=== PATIENT | female | born 1955 | race Caucasian/White ===

== ENCOUNTER 2018-05-11 10:59 | Day surgery (SDC) | payer OTHER ==
[2018-05-11] MEDS ORDERED: FENTAnyl 50 MCG/ML VIAL (12:48)
[2018-05-11] MEDS ORDERED: MIDAZOLAM 1 MG/ML 2 ML INJ ×2 (12:49)
== END 2018-05-11 17:22 | disposition home or self-care (01) ==
LOC: GIL 10:59
DX: K21.9 Gastro-esophageal reflux disease without esophagitis (principal); K44.9 Diaphragmatic hernia without obstruction or gangrene; K29.70 Gastritis, unspecified, without bleeding
CPT/HCPCS: 43239; 88305

== ENCOUNTER 2018-05-16 07:04 | Emergency (ER) | payer OTHER ==
[2018-05-16] MEDS: BELLADONNA/PHENOBARBITAL TAB PO (08:02)
[2018-05-16] MEDS: LIDOCAINE/MYLANTA 40 ML BTL PO (08:02)
[2018-05-16 08:20] LABS: ADD MAN DIFF? NO
[2018-05-16 08:34] LABS: WHITE BLOOD COUNT 6.4 10^3/ul (4.8-10.8)
[2018-05-16 08:34] LABS: BASOPHIL # 0.1 10^3/ul (0.0-0.1); BASOPHILS % 1.2 % (0.0-2.0); EOSINOPHILS # 0.2 10^3/ul (0.0-0.5); EOSINOPHILS % 3.1 % (0.0-7.0); HEMATOCRIT 42.5 % (37.0-47.0); HEMOGLOBIN 13.4 g/dl (12.0-16.0); LYMPHOCYTES # 1.8 10^3/ul (0.8-2.9); LYMPHOCYTES % 27.6 % (15.0-51.0); MEAN CORPUSCULAR HEMOGLOBIN 24.9 pg (29.0-33.0); MEAN CORPUSCULAR HGB CONC 31.5 g/dl (32.0-37.0); MEAN CORPUSCULAR VOLUME 78.8 fl (82.0-101.0); MEAN PLATELET VOLUME 12.1 fl (7.4-10.4); MONOCYTE # 0.4 10^3/ul (0.3-0.9); MONOCYTES % 6.4 % (0.0-11.0); NEUTROPHIL # 3.9 10^3/ul (1.6-7.5); NEUTROPHILS % 61.4 % (39.0-77.0); PLATELET COUNT 228 10^3/UL (140-415); RED BLOOD COUNT 5.39 10^6/ul (4.20-5.40); RED CELL DISTRIBUTION WIDTH 14.5 % (11.5-14.5)
[2018-05-16 08:52] LABS: ALANINE AMINOTRANSFERASE 27 IU/L (13-69); ALBUMIN 4.2 g/dl (3.3-4.9); ALBUMIN/GLOBULIN RATIO 1.31; ALKALINE PHOSPHATASE 93 IU/L (42-121); ANION GAP 10 (5-13); ASPARTATE AMINO TRANSFERASE 33 IU/L (15-46); BILIRUBIN,INDIRECT 1.2 mg/dl (0-1.1); BILIRUBIN,TOTAL 1.2 mg/dl (0.2-1.3); BLOOD UREA NITROGEN 13 mg/dl (7-20); CALCIUM 9.6 mg/dl (8.4-10.2); CARBON DIOXIDE 26 mmol/L (21-31); CHLORIDE 106 mmol/L (97-110); Estimated GFR > 60 mL/min (>60); GLUCOSE 101 mg/dl (70-220); LIPASE 129 U/L (23-300); POTASSIUM 4.3 mmol/L (3.5-5.1); SODIUM 142 mmol/L (135-144); TOTAL PROTEIN 7.4 g/dl (6.1-8.1)
== END 2018-05-16 10:32 | disposition home or self-care (01) ==
LOC: E/R 07:04
DX: R10.13 Epigastric pain (principal)
CPT/HCPCS: 36415; 80053; 83690; 85025; 99283

== ENCOUNTER 2018-05-17 09:59 | Emergency (ER) | payer OTHER | END 2018-05-17 16:52 | disposition home or self-care (01) | LOC: E/R 09:59 | DX: R10.13 Epigastric pain (principal) | CPT/HCPCS: 99282; Z7502 ==

== ENCOUNTER 2018-05-26 16:59 | Emergency (ER) | payer OTHER ==
[2018-05-26 20:52] LABS: ADD MAN DIFF? NO
[2018-05-26 20:56] LABS: WHITE BLOOD COUNT 8.4 10^3/ul (4.8-10.8)
[2018-05-26 20:56] LABS: BASOPHIL # 0.1 10^3/ul (0.0-0.1); BASOPHILS % 1.1 % (0.0-2.0); EOSINOPHILS # 0.4 10^3/ul (0.0-0.5); EOSINOPHILS % 4.4 % (0.0-7.0); HEMATOCRIT 42.1 % (37.0-47.0); HEMOGLOBIN 13.4 g/dl (12.0-16.0); LYMPHOCYTES # 2.8 10^3/ul (0.8-2.9); LYMPHOCYTES % 33.1 % (15.0-51.0); MEAN CORPUSCULAR HGB CONC 31.8 g/dl (32.0-37.0); MEAN CORPUSCULAR VOLUME 78.5 fl (82.0-101.0); MEAN PLATELET VOLUME 12.2 fl (7.4-10.4); MONOCYTE # 0.6 10^3/ul (0.3-0.9); MONOCYTES % 7.6 % (0.0-11.0); NEUTROPHIL # 4.5 10^3/ul (1.6-7.5); NEUTROPHILS % 53.6 % (39.0-77.0); PLATELET COUNT 208 10^3/UL (140-415); RED BLOOD COUNT 5.36 10^6/ul (4.20-5.40); RED CELL DISTRIBUTION WIDTH 14.4 % (11.5-14.5)
[2018-05-26] MEDS: METOCLOPRAMIDE 10 MG INJ IV (21:08)
[2018-05-26] MEDS: FAMOTIDINE 20 MG INJ IV (21:08)
[2018-05-26] MEDS: SOD CHLORIDE 0.9% 1,000 ML IV ×2 (21:09→23:18)
[2018-05-26 21:11] LABS: ADD UMIC YES; UR AMORPHOUS CRYSTAL FEW /HPF (NONE SEEN); UR ASCORBIC ACID NEGATIVE (NEGATIVE); UR BACTERIA MANY /HPF (NONE SEEN); UR BILIRUBIN (Dip) NEGATIVE (NEGATIVE); UR BLOOD (Dip) 2+ mg/dL (NEGATIVE); UR CLARITY SLIGHTLY CLOUDY (CLEAR); UR COLOR YELLOW (YELLOW); UR GLUCOSE (Dip) NEGATIVE (NEGATIVE); UR KETONES (Dip) 1+ mg/dL (NEGATIVE); UR LEUKOCYTE ESTERASE (Dip) 3+ Leu/ul (NEGATIVE); UR NITRITE (Dip) NEGATIVE (NEGATIVE); UR RBC 6 /HPF (0-5); UR SPECIFIC GRAVITY (Dip) 1.008 (1.003-1.030); UR SQUAMOUS EPITHELIAL CELL FEW /HPF (FEW); UR TOTAL PROTEIN (Dip) NEGATIVE (NEGATIVE); UR UROBILINOGEN (Dip) NEGATIVE (NEGATIVE); UR WBC 120 /HPF (0-5)
[2018-05-26 21:28] LABS: ALANINE AMINOTRANSFERASE 24 IU/L (13-69); ALBUMIN 4.2 g/dl (3.3-4.9); ALBUMIN/GLOBULIN RATIO 1.68; ALKALINE PHOSPHATASE 83 IU/L (42-121); ANION GAP 11 (5-13); ASPARTATE AMINO TRANSFERASE 22 IU/L (15-46); BILIRUBIN,INDIRECT 1.1 mg/dl (0-1.1); BILIRUBIN,TOTAL 1.1 mg/dl (0.2-1.3); BLOOD UREA NITROGEN 10 mg/dl (7-20); CALCIUM 9.7 mg/dl (8.4-10.2); CARBON DIOXIDE 24 mmol/L (21-31); CHLORIDE 103 mmol/L (97-110); CREATININE 0.83 mg/dl (0.44-1.00); Estimated GFR > 60 mL/min (>60); GLUCOSE 90 mg/dl (70-220); LIPASE 179 U/L (23-300); POTASSIUM 3.8 mmol/L (3.5-5.1); SODIUM 138 mmol/L (135-144); TOTAL PROTEIN 6.7 g/dl (6.1-8.1)
[2018-05-26] MEDS: CIPROFLOXACIN 400MG/D5W 200 ML IVPB (22:00)
[2018-05-26] MEDS: DOXYCYCLINE 100 MG TAB PO (23:22)
[2018-05-27] MEDS: FAMOTIDINE 20 MG TAB PO (00:43)
[2018-05-27] MEDS: LIDOCAINE/MYLANTA 40 ML BTL PO (00:45)
== END 2018-05-27 01:16 | disposition home or self-care (01) ==
LOC: E/R 05-27 01:16
DX: N30.00 Acute cystitis without hematuria (principal); E86.0 Dehydration
CPT/HCPCS: 36415; 80053; 81001; 83690; 85025; 96374; 96375; 99284-25

== ENCOUNTER 2018-07-16 02:47 | Emergency (ER) | payer OTHER ==
[2018-07-16] MEDS: LIDOCAINE/MYLANTA 40 ML BTL PO (03:46)
[2018-07-16 04:06] LABS: ADD MAN DIFF? NO
[2018-07-16 04:11] LABS: BASOPHIL # 0.1 10^3/ul (0.0-0.1); BASOPHILS % 1.7 % (0.0-2.0); EOSINOPHILS # 0.3 10^3/ul (0.0-0.5); EOSINOPHILS % 4.6 % (0.0-7.0); HEMATOCRIT 39.5 % (37.0-47.0); HEMOGLOBIN 12.6 g/dl (12.0-16.0); LYMPHOCYTES # 1.9 10^3/ul (0.8-2.9); LYMPHOCYTES % 32.5 % (15.0-51.0); MEAN CORPUSCULAR HEMOGLOBIN 25.4 pg (29.0-33.0); MEAN CORPUSCULAR HGB CONC 31.9 g/dl (32.0-37.0); MEAN CORPUSCULAR VOLUME 79.5 fl (82.0-101.0); MEAN PLATELET VOLUME 12.6 fl (7.4-10.4); MONOCYTE # 0.5 10^3/ul (0.3-0.9); NEUTROPHIL # 3.1 10^3/ul (1.6-7.5); PLATELET COUNT 220 10^3/UL (140-415); RED BLOOD COUNT 4.97 10^6/ul (4.20-5.40); RED CELL DISTRIBUTION WIDTH 15.6 % (11.5-14.5)
[2018-07-16 04:11] LABS: WHITE BLOOD COUNT 5.9 10^3/ul (4.8-10.8)
[2018-07-16 04:37] LABS: ADD UMIC YES; UR ASCORBIC ACID NEGATIVE (NEGATIVE); UR BILIRUBIN (Dip) NEGATIVE (NEGATIVE); UR BLOOD (Dip) 1+ mg/dL (NEGATIVE); UR CLARITY CLEAR (CLEAR); UR COLOR YELLOW (YELLOW); UR GLUCOSE (Dip) NEGATIVE (NEGATIVE); UR KETONES (Dip) 1+ mg/dL (NEGATIVE); UR LEUKOCYTE ESTERASE (Dip) NEGATIVE Leu/ul (NEGATIVE); UR NITRITE (Dip) NEGATIVE (NEGATIVE); UR RBC 1 /HPF (0-5); UR SQUAMOUS EPITHELIAL CELL FEW /HPF (FEW); UR TOTAL PROTEIN (Dip) NEGATIVE (NEGATIVE); UR UROBILINOGEN (Dip) NEGATIVE (NEGATIVE); UR WBC 1 /HPF (0-5)
[2018-07-16 04:43] LABS: ALANINE AMINOTRANSFERASE 23 IU/L (13-69); ALBUMIN 3.9 g/dl (3.3-4.9); ALBUMIN/GLOBULIN RATIO 1.39; ALKALINE PHOSPHATASE 66 IU/L (42-121); ANION GAP 9 (5-13); ASPARTATE AMINO TRANSFERASE 21 IU/L (15-46); BILIRUBIN,INDIRECT 1.3 mg/dl (0-1.1); BILIRUBIN,TOTAL 1.3 mg/dl (0.2-1.3); BLOOD UREA NITROGEN 5 mg/dl (7-20); CALCIUM 9.7 mg/dl (8.4-10.2); CARBON DIOXIDE 24 mmol/L (21-31); CHLORIDE 108 mmol/L (97-110); CREATININE 0.84 mg/dl (0.44-1.00); Estimated GFR > 60 mL/min (>60); GLUCOSE 83 mg/dl (70-220); LIPASE 65 U/L (23-300); POTASSIUM 3.6 mmol/L (3.5-5.1); SODIUM 141 mmol/L (135-144); TOTAL PROTEIN 6.7 g/dl (6.1-8.1)
[2018-07-16 04:55] LABS: TROPONIN-I < 0.012 ng/ml (0.000-0.120)
[2018-07-16] MEDS: FAMOTIDINE 20 MG INJ IV (05:24)
[2018-07-16] MEDS: ONDANSETRON 4 MG INJ IV (06:12)
== END 2018-07-16 06:20 | disposition home or self-care (01) ==
LOC: E/R 02:47
DX: R10.13 Epigastric pain (principal); R40.2142 Coma scale, eyes open, spontaneous, at arrival to emergency department; R40.2362 Coma scale, best motor response, obeys commands, at arrival to emergency department; R40.2252 Coma scale, best verbal response, oriented, at arrival to emergency department
CPT/HCPCS: 36415; 80053; 81001; 83690; 84484; 85025; 93005; 96374; 96375; 99284-25

== ENCOUNTER 2018-07-18 19:33 | Inpatient (IN) | payer OTHER ==
[2018-07-18] MEDS ORDERED: NACL 0.9% 3 ML SYG IV (20:00)
[2018-07-18] MEDS ORDERED: PANTOPRAZOLE 40 MG INJ IV (20:00)
[2018-07-18] MEDS ORDERED: ALBUTEROL HFA 8 GM INHALER INH (20:30)
[2018-07-18 20:37] LABS: ADD MAN DIFF? NO
[2018-07-18] MEDS: ONDANSETRON 4 MG INJ IV (20:37)
[2018-07-18 20:39] LABS: BASOPHIL # 0.1 10^3/ul (0.0-0.1); BASOPHILS % 1.4 % (0.0-2.0); EOSINOPHILS # 0.3 10^3/ul (0.0-0.5); EOSINOPHILS % 3.4 % (0.0-7.0); HEMOGLOBIN 12.3 g/dl (12.0-16.0); LYMPHOCYTES # 2.8 10^3/ul (0.8-2.9); LYMPHOCYTES % 35.6 % (15.0-51.0); MEAN CORPUSCULAR HEMOGLOBIN 25.3 pg (29.0-33.0); MEAN CORPUSCULAR HGB CONC 32.4 g/dl (32.0-37.0); MEAN PLATELET VOLUME 12.2 fl (7.4-10.4); MONOCYTE # 0.6 10^3/ul (0.3-0.9); MONOCYTES % 7.9 % (0.0-11.0); NEUTROPHIL # 4.1 10^3/ul (1.6-7.5); NEUTROPHILS % 51.3 % (39.0-77.0); PLATELET COUNT 217 10^3/UL (140-415); RED BLOOD COUNT 4.87 10^6/ul (4.20-5.40); RED CELL DISTRIBUTION WIDTH 15.7 % (11.5-14.5)
[2018-07-18 20:39] LABS: WHITE BLOOD COUNT 7.9 10^3/ul (4.8-10.8)
[2018-07-18] MEDS: LORAZEPAM 1 MG TAB PO (20:51)
[2018-07-18 20:58] LABS: ALANINE AMINOTRANSFERASE 24 IU/L (13-69); ALBUMIN 3.9 g/dl (3.3-4.9); ALBUMIN/GLOBULIN RATIO 1.39; ALKALINE PHOSPHATASE 62 IU/L (42-121); ANION GAP 10 (5-13); ASPARTATE AMINO TRANSFERASE 21 IU/L (15-46); BILIRUBIN,INDIRECT 1.5 mg/dl (0-1.1); BILIRUBIN,TOTAL 1.5 mg/dl (0.2-1.3); BLOOD UREA NITROGEN 6 mg/dl (7-20); CALCIUM 9.8 mg/dl (8.4-10.2); CARBON DIOXIDE 18 mmol/L (21-31); CHLORIDE 109 mmol/L (97-110); CREATININE 0.81 mg/dl (0.44-1.00); Estimated GFR > 60 mL/min (>60); GLUCOSE 73 mg/dl (70-220); POTASSIUM 3.8 mmol/L (3.5-5.1); SODIUM 137 mmol/L (135-144); TOTAL PROTEIN 6.7 g/dl (6.1-8.1)
[2018-07-18] MEDS ORDERED: HYDROmorphONE 0.5 MG/0.5 ML SYG IV (21:00)
[2018-07-18 21:24] LABS: ETHANOL < 10.0 mg/dl (0-0)
[2018-07-18] MEDS: FLUCONAZOLE 150 MG TAB PO (23:36)
[2018-07-18] MEDS: FAMOTIDINE 20 MG INJ IV (23:43)
[2018-07-19] MEDS: SOD CHLORIDE 0.9% 1,000 ML IV ×2 (00:03→14:50)
[2018-07-19 03:05] LABS: ADD UMIC YES; UR ASCORBIC ACID NEGATIVE (NEGATIVE); UR BILIRUBIN (Dip) NEGATIVE (NEGATIVE); UR BLOOD (Dip) NEGATIVE (NEGATIVE); UR CLARITY CLEAR (CLEAR); UR COLOR YELLOW (YELLOW); UR GLUCOSE (Dip) NEGATIVE (NEGATIVE); UR KETONES (Dip) 1+ mg/dL (NEGATIVE); UR LEUKOCYTE ESTERASE (Dip) 2+ Leu/ul (NEGATIVE); UR NITRITE (Dip) NEGATIVE (NEGATIVE); UR RBC 2 /HPF (0-5); UR SPECIFIC GRAVITY (Dip) 1.011 (1.003-1.030); UR TOTAL PROTEIN (Dip) NEGATIVE (NEGATIVE); UR UROBILINOGEN (Dip) NEGATIVE (NEGATIVE); UR WBC 10 /HPF (0-5)
[2018-07-19 03:17] LABS: AMPHETAMINE/METHAMPHETAMINE Negative (NEGATIVE); BARBITURATES Negative (NEGATIVE); BENZODIAZEPINES Negative (NEGATIVE); CANNABINOIDS Negative (NEGATIVE); COCAINE Negative (NEGATIVE); OPIATES Negative (NEGATIVE)
[2018-07-19 05:56] LABS: ADD MAN DIFF? NO
[2018-07-19] MEDS: FAMOTIDINE 20 MG INJ IV (06:05)
[2018-07-19 06:06] LABS: WHITE BLOOD COUNT 6.5 10^3/ul (4.8-10.8)
[2018-07-19 06:06] LABS: ABNORMAL IP MESSAGE 1; BASOPHIL # 0.1 10^3/ul (0.0-0.1); EOSINOPHILS # 0.3 10^3/ul (0.0-0.5); EOSINOPHILS % 4.3 % (0.0-7.0); HEMATOCRIT 36.4 % (37.0-47.0); HEMOGLOBIN 11.6 g/dl (12.0-16.0); LYMPHOCYTES # 2.3 10^3/ul (0.8-2.9); LYMPHOCYTES % 35.4 % (15.0-51.0); MEAN CORPUSCULAR HEMOGLOBIN 25.4 pg (29.0-33.0); MEAN CORPUSCULAR HGB CONC 31.9 g/dl (32.0-37.0); MEAN CORPUSCULAR VOLUME 79.6 fl (82.0-101.0); MEAN PLATELET VOLUME 13.4 fl (7.4-10.4); MONOCYTE # 0.5 10^3/ul (0.3-0.9); MONOCYTES % 8.3 % (0.0-11.0); NEUTROPHIL # 3.2 10^3/ul (1.6-7.5); NEUTROPHILS % 49.7 % (39.0-77.0); PLATELET COUNT 204 10^3/UL (140-415); RED BLOOD COUNT 4.57 10^6/ul (4.20-5.40); RED CELL DISTRIBUTION WIDTH 15.9 % (11.5-14.5)
[2018-07-19 06:13] LABS: POSITIVE DIFF @See below
[2018-07-19 06:28] LABS: IRON 57 ug/dl (35-150)
[2018-07-19 06:31] LABS: ANION GAP 4 (5-13); BLOOD UREA NITROGEN 6 mg/dl (7-20); CALCIUM 9.2 mg/dl (8.4-10.2); CARBON DIOXIDE 24 mmol/L (21-31); CHLORIDE 111 mmol/L (97-110); CHOL/HDL RATIO 2.2 RATIO; CHOLESTEROL 152 mg/dl (100-200); Estimated GFR > 60 mL/min (>60); GLUCOSE 58 mg/dl (70-220); HDL CHOLESTEROL 67 mg/dl (35-98); LDL CHOLESTEROL,CALCULATED 72 mg/dl; MAGNESIUM 2.1 mg/dl (1.7-2.5); SODIUM 139 mmol/L (135-144); TRIGLYCERIDES 67 mg/dl (0-149)
[2018-07-19 06:32] LABS: HEMOGLOBIN A1C 5.2 % (0-5.9)
[2018-07-19 06:37] LABS: % IRON SATURATION 24 % SAT (22-52); TOTAL IRON BINDING CAPACITY 238 ug/dl (241-421)
[2018-07-19] MEDS: AL HYDROX/MG HYDROX/SIMETH 30 ML CUP PO (06:58)
[2018-07-19] MEDS: PEG/ELECTROLYTES 4L BTL PO (08:00)
[2018-07-19] MEDS: ONDANSETRON 4 MG INJ IV ×2 (08:04→18:14)
[2018-07-19] MEDS: BISACODYL (EC) 5 MG TAB PO (14:43)
[2018-07-19] MEDS: METOCLOPRAMIDE 10 MG INJ IV (14:43)
[2018-07-19] MEDS: DIPHENHYDRAMINE 50 MG INJ IV (14:50)
[2018-07-19] MEDS: MAGNESIUM CITRATE 300 ML BTL PO (17:30)
[2018-07-19] MEDS: POLYETHYLENE GLYCOL 3350 119 GM POWDER PO (17:50)
[2018-07-19] MEDS: WITCH HAZEL/GLYCERIN PAD PR (23:31)
[2018-07-20] MEDS: AL HYDROX/MG HYDROX/SIMETH 30 ML CUP PO (01:04)
[2018-07-20] MEDS: ONDANSETRON 4 MG INJ IV ×3 (03:39→21:24)
[2018-07-20] MEDS: FAMOTIDINE 20 MG INJ IV ×2 (05:17→21:14)
[2018-07-20] MEDS: SOD CHLORIDE 0.9% 1,000 ML IV ×3 (05:24→22:48)
[2018-07-20] MEDS: ACETAMINOPHEN 325 MG TAB PO (05:46)
[2018-07-20] MEDS ORDERED: LIDOCAINE 2% (SDV) 5 ML INJ (07:00)
[2018-07-20] MEDS: METOCLOPRAMIDE 10 MG INJ IV (08:19)
[2018-07-20] MEDS: POLYETHYLENE GLYCOL 3350 119 GM POWDER PO (08:20)
[2018-07-20] MEDS: BISACODYL (EC) 5 MG TAB PO (08:20)
[2018-07-20] MEDS: PHENOL 1.4% SOLN 180 ML BTL MT ×3 (08:20→18:53)
[2018-07-20 08:21] LABS: ADD MAN DIFF? NO
[2018-07-20 08:25] LABS: WHITE BLOOD COUNT 6.2 10^3/ul (4.8-10.8)
[2018-07-20 08:25] LABS: BASOPHIL # 0.1 10^3/ul (0.0-0.1); BASOPHILS % 1.9 % (0.0-2.0); EOSINOPHILS % 0.6 % (0.0-7.0); HEMATOCRIT 38.9 % (37.0-47.0); HEMOGLOBIN 12.7 g/dl (12.0-16.0); LYMPHOCYTES # 1.2 10^3/ul (0.8-2.9); LYMPHOCYTES % 18.6 % (15.0-51.0); MEAN CORPUSCULAR HEMOGLOBIN 25.5 pg (29.0-33.0); MEAN CORPUSCULAR HGB CONC 32.6 g/dl (32.0-37.0); MEAN CORPUSCULAR VOLUME 78.1 fl (82.0-101.0); MEAN PLATELET VOLUME 12.8 fl (7.4-10.4); MONOCYTE # 0.4 10^3/ul (0.3-0.9); MONOCYTES % 5.6 % (0.0-11.0); NEUTROPHIL # 4.5 10^3/ul (1.6-7.5); PLATELET COUNT 236 10^3/UL (140-415); RED BLOOD COUNT 4.98 10^6/ul (4.20-5.40); RED CELL DISTRIBUTION WIDTH 15.9 % (11.5-14.5)
[2018-07-20 08:46] LABS: ANION GAP 14 (5-13); BLOOD UREA NITROGEN 4 mg/dl (7-20); CALCIUM 9.9 mg/dl (8.4-10.2); CARBON DIOXIDE 17 mmol/L (21-31); CHLORIDE 109 mmol/L (97-110); CREATININE 0.71 mg/dl (0.44-1.00); Estimated GFR > 60 mL/min (>60); GLUCOSE 84 mg/dl (70-220); SODIUM 140 mmol/L (135-144)
[2018-07-20] MEDS ORDERED: PROPOFOL 40 ML (15:30)
[2018-07-20] MEDS: HYDROmorphONE 0.5 MG/0.5 ML SYG IV (21:31)
[2018-07-21] MEDS: PHENOL 1.4% SOLN 180 ML BTL MT ×2 (00:25→02:35)
[2018-07-21] MEDS: LORAZEPAM 1 MG TAB PO ×3 (02:19→23:08)
[2018-07-21 05:57] LABS: ADD MAN DIFF? NO
[2018-07-21 06:08] LABS: WHITE BLOOD COUNT 6.8 10^3/ul (4.8-10.8)
[2018-07-21 06:08] LABS: BASOPHIL # 0.1 10^3/ul (0.0-0.1); BASOPHILS % 1.3 % (0.0-2.0); EOSINOPHILS # 0.2 10^3/ul (0.0-0.5); EOSINOPHILS % 2.9 % (0.0-7.0); HEMATOCRIT 35.4 % (37.0-47.0); HEMOGLOBIN 11.6 g/dl (12.0-16.0); LYMPHOCYTES # 2.3 10^3/ul (0.8-2.9); MEAN CORPUSCULAR HEMOGLOBIN 25.8 pg (29.0-33.0); MEAN CORPUSCULAR HGB CONC 32.8 g/dl (32.0-37.0); MEAN CORPUSCULAR VOLUME 78.8 fl (82.0-101.0); MEAN PLATELET VOLUME 12.9 fl (7.4-10.4); MONOCYTE # 0.6 10^3/ul (0.3-0.9); MONOCYTES % 8.1 % (0.0-11.0); NEUTROPHIL # 3.7 10^3/ul (1.6-7.5); NEUTROPHILS % 54.6 % (39.0-77.0); PLATELET COUNT 199 10^3/UL (140-415); RED BLOOD COUNT 4.49 10^6/ul (4.20-5.40); RED CELL DISTRIBUTION WIDTH 15.9 % (11.5-14.5)
[2018-07-21 06:36] LABS: ANION GAP 9 (5-13); BLOOD UREA NITROGEN 3 mg/dl (7-20); CALCIUM 9.6 mg/dl (8.4-10.2); CARBON DIOXIDE 22 mmol/L (21-31); CHLORIDE 107 mmol/L (97-110); CREATININE 0.67 mg/dl (0.44-1.00); Estimated GFR > 60 mL/min (>60); GLUCOSE 71 mg/dl (70-220); SODIUM 138 mmol/L (135-144)
[2018-07-21] MEDS: FAMOTIDINE 20 MG INJ IV ×2 (08:38→23:12)
[2018-07-21] MEDS: ONDANSETRON 4 MG INJ IV ×2 (08:38→16:59)
[2018-07-21] MEDS ORDERED: HYDROCODONE/APAP (5/325) TAB PO (13:00)
[2018-07-21] MEDS: SOD CHLORIDE 0.9% 1,000 ML IV (13:29)
[2018-07-21 13:54] LABS: ADD UMIC NO; UR ASCORBIC ACID NEGATIVE (NEGATIVE); UR BILIRUBIN (Dip) NEGATIVE (NEGATIVE); UR BLOOD (Dip) NEGATIVE (NEGATIVE); UR CLARITY CLEAR (CLEAR); UR COLOR STRAW (YELLOW); UR GLUCOSE (Dip) NEGATIVE (NEGATIVE); UR KETONES (Dip) 2+ mg/dL (NEGATIVE); UR LEUKOCYTE ESTERASE (Dip) NEGATIVE Leu/ul (NEGATIVE); UR NITRITE (Dip) NEGATIVE (NEGATIVE); UR TOTAL PROTEIN (Dip) NEGATIVE (NEGATIVE); UR UROBILINOGEN (Dip) NEGATIVE (NEGATIVE)
[2018-07-21] MEDS: CALCIUM CARBONATE 500 MG CHEW TAB PO (17:35)
[2018-07-22] MEDS: SOD CHLORIDE 0.9% 1,000 ML IV (02:27)
[2018-07-22] MEDS: ONDANSETRON 4 MG INJ IV ×2 (06:12→13:53)
[2018-07-22] MEDS: ACETAMINOPHEN 325 MG TAB PO (07:50)
[2018-07-22] MEDS: CALCIUM CARBONATE 500 MG CHEW TAB PO (07:50)
[2018-07-22] MEDS ORDERED: DIPHENHYDRAMINE 25 MG CAP PO (08:30)
[2018-07-22 08:38] LABS: ADD MAN DIFF? NO
[2018-07-22 08:42] LABS: WHITE BLOOD COUNT 6.2 10^3/ul (4.8-10.8)
[2018-07-22 08:42] LABS: ABNORMAL IP MESSAGE 1; BASOPHIL # 0.1 10^3/ul (0.0-0.1); BASOPHILS % 1.3 % (0.0-2.0); EOSINOPHILS # 0.2 10^3/ul (0.0-0.5); EOSINOPHILS % 2.9 % (0.0-7.0); HEMATOCRIT 37.2 % (37.0-47.0); HEMOGLOBIN 11.8 g/dl (12.0-16.0); LYMPHOCYTES # 1.4 10^3/ul (0.8-2.9); LYMPHOCYTES % 22.5 % (15.0-51.0); MEAN CORPUSCULAR HEMOGLOBIN 25.2 pg (29.0-33.0); MEAN CORPUSCULAR HGB CONC 31.7 g/dl (32.0-37.0); MEAN CORPUSCULAR VOLUME 79.5 fl (82.0-101.0); MEAN PLATELET VOLUME 13.4 fl (7.4-10.4); MONOCYTE # 0.5 10^3/ul (0.3-0.9); MONOCYTES % 7.9 % (0.0-11.0); NEUTROPHILS % 65.1 % (39.0-77.0); PLATELET COUNT 206 10^3/UL (140-415); RED BLOOD COUNT 4.68 10^6/ul (4.20-5.40); RED CELL DISTRIBUTION WIDTH 15.9 % (11.5-14.5)
[2018-07-22 08:44] LABS: POSITIVE DIFF @See below
[2018-07-22] MEDS: FAMOTIDINE 20 MG INJ IV (08:45)
[2018-07-22 09:00] LABS: ANION GAP 10 (5-13); BLOOD UREA NITROGEN 3 mg/dl (7-20); CALCIUM 9.4 mg/dl (8.4-10.2); CARBON DIOXIDE 23 mmol/L (21-31); CHLORIDE 107 mmol/L (97-110); CREATININE 0.69 mg/dl (0.44-1.00); Estimated GFR > 60 mL/min (>60); GLUCOSE 77 mg/dl (70-220); POTASSIUM 3.4 mmol/L (3.5-5.1); SODIUM 140 mmol/L (135-144)
[2018-07-22] MEDS: LORAZEPAM 1 MG TAB PO (11:30)
== END 2018-07-22 15:30 | disposition home or self-care (01) | DRG 392 ==
LOC: 2NE 07-19 01:49 → 5EC 19:33
PROVIDERS: Internal Medicine
PROC: 0DJD8ZZ Inspection of Lower Intestinal Tract, Via Natural or Artificial Opening Endoscopic (ICD-10-PCS; principal; 2018-07-20 14:00)
DX: K58.0 Irritable bowel syndrome with diarrhea (principal); F33.8 Other recurrent depressive disorders; F43.10 Post-traumatic stress disorder, unspecified; K57.90 Diverticulosis of intestine, part unspecified, without perforation or abscess without bleeding; K64.8 Other hemorrhoids; R07.0 Pain in throat; B37.3 Candidiasis of vulva and vagina; G47.00 Insomnia, unspecified
CPT/HCPCS: 71045; 80048; 80053; 80061; 80307; 81001; 81003; 82728; 82962; 83036; 83540; 83735; 84443; 85025; 87086

== ENCOUNTER 2018-08-08 09:01 | Observation (INO) | payer OTHER ==
[2018-08-08] MEDS ORDERED: ACETAMINOPHEN 325 MG TAB PO (11:00)
[2018-08-08] MEDS ORDERED: ONDANSETRON 4 MG INJ IV (11:00)
[2018-08-08 11:05] LABS: ADD MAN DIFF? NO
[2018-08-08] MEDS: ONDANSETRON 4 MG INJ IV (11:07)
[2018-08-08] MEDS: LIDOCAINE/MYLANTA 40 ML BTL PO (11:07)
[2018-08-08] MEDS: SOD CHLORIDE 0.9% 1,000 ML IV (11:07)
[2018-08-08 11:09] LABS: ADD UMIC NO; UR ASCORBIC ACID NEGATIVE (NEGATIVE); UR BILIRUBIN (Dip) NEGATIVE (NEGATIVE); UR BLOOD (Dip) NEGATIVE (NEGATIVE); UR CLARITY CLEAR (CLEAR); UR COLOR YELLOW (YELLOW); UR GLUCOSE (Dip) NEGATIVE (NEGATIVE); UR KETONES (Dip) 1+ mg/dL (NEGATIVE); UR LEUKOCYTE ESTERASE (Dip) NEGATIVE Leu/ul (NEGATIVE); UR NITRITE (Dip) NEGATIVE (NEGATIVE); UR SPECIFIC GRAVITY (Dip) 1.027 (1.003-1.030); UR TOTAL PROTEIN (Dip) NEGATIVE (NEGATIVE); UR UROBILINOGEN (Dip) NEGATIVE (NEGATIVE)
[2018-08-08 11:10] LABS: BASOPHIL # 0.1 10^3/ul (0.0-0.1); BASOPHILS % 1.2 % (0.0-2.0); EOSINOPHILS # 0.1 10^3/ul (0.0-0.5); EOSINOPHILS % 0.7 % (0.0-7.0); HEMATOCRIT 42.8 % (37.0-47.0); HEMOGLOBIN 13.7 g/dl (12.0-16.0); LYMPHOCYTES # 2.8 10^3/ul (0.8-2.9); LYMPHOCYTES % 32.7 % (15.0-51.0); MEAN CORPUSCULAR HEMOGLOBIN 25.3 pg (29.0-33.0); MEAN PLATELET VOLUME 12.8 fl (7.4-10.4); MONOCYTE # 0.6 10^3/ul (0.3-0.9); MONOCYTES % 7.1 % (0.0-11.0); NEUTROPHIL # 4.9 10^3/ul (1.6-7.5); NEUTROPHILS % 58.1 % (39.0-77.0); PLATELET COUNT 260 10^3/UL (140-415); RED BLOOD COUNT 5.42 10^6/ul (4.20-5.40); RED CELL DISTRIBUTION WIDTH 16.5 % (11.5-14.5)
[2018-08-08 11:10] LABS: WHITE BLOOD COUNT 8.5 10^3/ul (4.8-10.8)
[2018-08-08 11:32] LABS: ALANINE AMINOTRANSFERASE 32 IU/L (13-69); ALBUMIN 4.3 g/dl (3.3-4.9); ALBUMIN/GLOBULIN RATIO 1.43; ALKALINE PHOSPHATASE 80 IU/L (42-121); ANION GAP 16 (5-13); ASPARTATE AMINO TRANSFERASE 30 IU/L (15-46); BILIRUBIN,INDIRECT 1.3 mg/dl (0-1.1); BILIRUBIN,TOTAL 1.3 mg/dl (0.2-1.3); BLOOD UREA NITROGEN 8 mg/dl (7-20); CARBON DIOXIDE 20 mmol/L (21-31); CHLORIDE 102 mmol/L (97-110); CREATININE 0.94 mg/dl (0.44-1.00); Estimated GFR > 60 mL/min (>60); GLUCOSE 119 mg/dl (70-220); LIPASE 91 U/L (23-300); POTASSIUM 3.9 mmol/L (3.5-5.1); SODIUM 138 mmol/L (135-144); TOTAL PROTEIN 7.3 g/dl (6.1-8.1)
[2018-08-08 11:42] LABS: TROPONIN-I < 0.012 ng/ml (0.000-0.120)
[2018-08-08] MEDS ORDERED: ALBUTEROL HFA 8 GM INHALER INH (12:00)
[2018-08-08 12:30] LABS: AMPHETAMINE/METHAMPHETAMINE Negative (NEGATIVE); BARBITURATES Negative (NEGATIVE); BENZODIAZEPINES Negative (NEGATIVE); CANNABINOIDS Negative (NEGATIVE); COCAINE Negative (NEGATIVE); OPIATES Negative (NEGATIVE)
[2018-08-08] MEDS: DEXTROSE 5%-0.45% NACL 1,000 ML IV ×2 (12:30→22:44)
[2018-08-08] MEDS: METOCLOPRAMIDE 10 MG INJ IV ×2 (12:30→18:00)
[2018-08-08] MEDS: MIRTAZAPINE 15 MG TAB PO (21:00)
[2018-08-08] MEDS: FAMOTIDINE 20 MG INJ IV (21:00)
[2018-08-08] MEDS: LORAZEPAM 1 MG TAB PO (21:08)
[2018-08-09] MEDS: METOCLOPRAMIDE 10 MG INJ IV ×5 (05:08→21:33)
[2018-08-09 05:11] LABS: ADD MAN DIFF? NO
[2018-08-09 05:16] LABS: WHITE BLOOD COUNT 5.7 10^3/ul (4.8-10.8)
[2018-08-09 05:16] LABS: BASOPHIL # 0.1 10^3/ul (0.0-0.1); BASOPHILS % 1.6 % (0.0-2.0); EOSINOPHILS # 0.2 10^3/ul (0.0-0.5); HEMATOCRIT 38.4 % (37.0-47.0); HEMOGLOBIN 12.3 g/dl (12.0-16.0); LYMPHOCYTES # 2.3 10^3/ul (0.8-2.9); LYMPHOCYTES % 41.3 % (15.0-51.0); MEAN CORPUSCULAR HEMOGLOBIN 25.3 pg (29.0-33.0); MEAN PLATELET VOLUME 12.6 fl (7.4-10.4); MONOCYTE # 0.5 10^3/ul (0.3-0.9); NEUTROPHIL # 2.6 10^3/ul (1.6-7.5); NEUTROPHILS % 45.1 % (39.0-77.0); PLATELET COUNT 225 10^3/UL (140-415); RED BLOOD COUNT 4.86 10^6/ul (4.20-5.40); RED CELL DISTRIBUTION WIDTH 16.4 % (11.5-14.5)
[2018-08-09 05:48] LABS: ANION GAP 9 (5-13); BLOOD UREA NITROGEN 4 mg/dl (7-20); CALCIUM 9.6 mg/dl (8.4-10.2); CARBON DIOXIDE 24 mmol/L (21-31); CHLORIDE 108 mmol/L (97-110); CREATININE 0.73 mg/dl (0.44-1.00); Estimated GFR > 60 mL/min (>60); GLUCOSE 106 mg/dl (70-220); MAGNESIUM 2.2 mg/dl (1.7-2.5); POTASSIUM 3.9 mmol/L (3.5-5.1); SODIUM 141 mmol/L (135-144)
[2018-08-09] MEDS: LORAZEPAM 1 MG TAB PO (07:59)
[2018-08-09] MEDS: FAMOTIDINE 20 MG INJ IV ×3 (07:59→21:00)
[2018-08-09] MEDS: DEXTROSE 5%-0.45% NACL 1,000 ML IV ×3 (08:00→18:00)
[2018-08-09] MEDS ORDERED: SIMETH/SOD BICARB/CIT AC PKT (E-Z- GAS II) PO (08:50)
[2018-08-09] MEDS ORDERED: BARIUM SULFATE 135 ML (E-Z HD) PO (08:50)
[2018-08-09] MEDS: ONDANSETRON 4 MG INJ IV ×2 (13:15→21:34)
[2018-08-09] MEDS: MIRTAZAPINE 15 MG TAB GTB (23:05)
[2018-08-10] MEDS: DEXTROSE 5%-0.45% NACL 1,000 ML IV ×3 (01:50→22:06)
[2018-08-10] MEDS: METOCLOPRAMIDE 10 MG INJ IV ×4 (06:00→22:07)
[2018-08-10 06:28] LABS: ADD MAN DIFF? NO
[2018-08-10 06:36] LABS: WHITE BLOOD COUNT 6.2 10^3/ul (4.8-10.8)
[2018-08-10 06:36] LABS: BASOPHIL # 0.1 10^3/ul (0.0-0.1); BASOPHILS % 1.3 % (0.0-2.0); EOSINOPHILS # 0.2 10^3/ul (0.0-0.5); EOSINOPHILS % 3.1 % (0.0-7.0); HEMATOCRIT 39.6 % (37.0-47.0); LYMPHOCYTES % 48.8 % (15.0-51.0); MEAN CORPUSCULAR HEMOGLOBIN 25.6 pg (29.0-33.0); MEAN CORPUSCULAR HGB CONC 32.8 g/dl (32.0-37.0); MEAN CORPUSCULAR VOLUME 78.1 fl (82.0-101.0); MEAN PLATELET VOLUME 12.5 fl (7.4-10.4); MONOCYTE # 0.5 10^3/ul (0.3-0.9); MONOCYTES % 8.1 % (0.0-11.0); NEUTROPHIL # 2.4 10^3/ul (1.6-7.5); NEUTROPHILS % 38.5 % (39.0-77.0); PLATELET COUNT 235 10^3/UL (140-415); RED BLOOD COUNT 5.07 10^6/ul (4.20-5.40); RED CELL DISTRIBUTION WIDTH 16.2 % (11.5-14.5)
[2018-08-10 07:12] LABS: ANION GAP 9 (5-13); BLOOD UREA NITROGEN 2 mg/dl (7-20); CALCIUM 9.6 mg/dl (8.4-10.2); CARBON DIOXIDE 21 mmol/L (21-31); CHLORIDE 114 mmol/L (97-110); CREATININE 0.68 mg/dl (0.44-1.00); Estimated GFR > 60 mL/min (>60); GLUCOSE 110 mg/dl (70-220); POTASSIUM 3.3 mmol/L (3.5-5.1); SODIUM 144 mmol/L (135-144)
[2018-08-10] MEDS: ONDANSETRON 4 MG INJ IV ×3 (08:09→17:51)
[2018-08-10] MEDS: FAMOTIDINE 20 MG INJ IV ×2 (10:26→21:00)
[2018-08-10] MEDS: LORAZEPAM 1 MG TAB PO (10:26)
[2018-08-10] MEDS: POTASSIUM CHLORIDE 100 ML IVPB ×2 (11:45→13:34)
[2018-08-10] MEDS: LIDOCAINE 5% PATCH TD (15:11)
[2018-08-10] MEDS: MIRTAZAPINE 15 MG TAB PO (22:06)
[2018-08-11 05:21] LABS: ADD MAN DIFF? NO
[2018-08-11 05:28] LABS: WHITE BLOOD COUNT 5.3 10^3/ul (4.8-10.8)
[2018-08-11 05:28] LABS: BASOPHIL # 0.1 10^3/ul (0.0-0.1); BASOPHILS % 1.1 % (0.0-2.0); EOSINOPHILS # 0.2 10^3/ul (0.0-0.5); EOSINOPHILS % 3.8 % (0.0-7.0); HEMATOCRIT 39.8 % (37.0-47.0); HEMOGLOBIN 12.7 g/dl (12.0-16.0); LYMPHOCYTES % 38.1 % (15.0-51.0); MEAN CORPUSCULAR HEMOGLOBIN 25.4 pg (29.0-33.0); MEAN CORPUSCULAR HGB CONC 31.9 g/dl (32.0-37.0); MEAN CORPUSCULAR VOLUME 79.6 fl (82.0-101.0); MEAN PLATELET VOLUME 12.7 fl (7.4-10.4); MONOCYTE # 0.5 10^3/ul (0.3-0.9); MONOCYTES % 8.5 % (0.0-11.0); NEUTROPHIL # 2.5 10^3/ul (1.6-7.5); NEUTROPHILS % 48.3 % (39.0-77.0); PLATELET COUNT 223 10^3/UL (140-415); RED CELL DISTRIBUTION WIDTH 16.6 % (11.5-14.5)
[2018-08-11 05:57] LABS: ANION GAP 8 (5-13); BLOOD UREA NITROGEN 3 mg/dl (7-20); CALCIUM 9.5 mg/dl (8.4-10.2); CARBON DIOXIDE 23 mmol/L (21-31); CHLORIDE 111 mmol/L (97-110); CREATININE 0.81 mg/dl (0.44-1.00); Estimated GFR > 60 mL/min (>60); GLUCOSE 128 mg/dl (70-220); POTASSIUM 3.4 mmol/L (3.5-5.1); SODIUM 142 mmol/L (135-144)
[2018-08-11] MEDS: METOCLOPRAMIDE 10 MG INJ IV ×2 (06:00→12:22)
[2018-08-11] MEDS: DEXTROSE 5%-0.45% NACL 1,000 ML IV (06:50)
[2018-08-11] MEDS: ONDANSETRON 4 MG INJ IV (08:40)
[2018-08-11] MEDS: FAMOTIDINE 20 MG TAB PO (08:45)
[2018-08-11] MEDS: LORAZEPAM 1 MG TAB PO (08:45)
== END 2018-08-11 15:45 | disposition home or self-care (01) ==
LOC: FTE 09:01 → 2NE 10:50
DX: K29.70 Gastritis, unspecified, without bleeding (principal); I10 Essential (primary) hypertension; K21.9 Gastro-esophageal reflux disease without esophagitis; F41.9 Anxiety disorder, unspecified; F32.9 Major depressive disorder, single episode, unspecified; R63.4 Abnormal weight loss; Z68.1 Body mass index [BMI] 19.9 or less, adult; E46 Unspecified protein-calorie malnutrition
CPT/HCPCS: 36415; 71045; 71250; 74176; 74250; 80048; 80053; 80307; 81003; 83690; 83735; 84484; 85025; 93005; 99285-25

== ENCOUNTER 2018-08-23 00:07 | Emergency (ER) | payer SELFPAY, OTHER | END 2018-08-23 00:33 | disposition left against medical advice (07) | LOC: FTE 00:07 | DX: Z53.21 Procedure and treatment not carried out due to patient leaving prior to being seen by health care provider (principal) ==

== ENCOUNTER 2018-08-28 05:22 | Emergency (ER) | payer OTHER ==
[2018-08-28 06:12] LABS: ADD MAN DIFF? NO
[2018-08-28 06:17] LABS: BASOPHIL # 0.1 10^3/ul (0.0-0.1); BASOPHILS % 1.6 % (0.0-2.0); EOSINOPHILS # 0.1 10^3/ul (0.0-0.5); HEMATOCRIT 42.1 % (37.0-47.0); HEMOGLOBIN 13.5 g/dl (12.0-16.0); LYMPHOCYTES # 1.5 10^3/ul (0.8-2.9); LYMPHOCYTES % 25.7 % (15.0-51.0); MEAN CORPUSCULAR HEMOGLOBIN 25.4 pg (29.0-33.0); MEAN CORPUSCULAR HGB CONC 32.1 g/dl (32.0-37.0); MEAN CORPUSCULAR VOLUME 79.3 fl (82.0-101.0); MONOCYTE # 0.3 10^3/ul (0.3-0.9); MONOCYTES % 5.9 % (0.0-11.0); NEUTROPHIL # 3.8 10^3/ul (1.6-7.5); NEUTROPHILS % 65.5 % (39.0-77.0); PLATELET COUNT 248 10^3/UL (140-415); RED BLOOD COUNT 5.31 10^6/ul (4.20-5.40); RED CELL DISTRIBUTION WIDTH 15.8 % (11.5-14.5)
[2018-08-28 06:17] LABS: WHITE BLOOD COUNT 5.8 10^3/ul (4.8-10.8)
[2018-08-28 06:33] LABS: ANION GAP 11 (5-13); BLOOD UREA NITROGEN 6 mg/dl (7-20); CALCIUM 9.8 mg/dl (8.4-10.2); CARBON DIOXIDE 21 mmol/L (21-31); CHLORIDE 109 mmol/L (97-110); CREATININE 0.98 mg/dl (0.44-1.00); Estimated GFR 58 mL/min (>60); GLUCOSE 104 mg/dl (70-220); SODIUM 141 mmol/L (135-144)
[2018-08-28 06:45] LABS: TROPONIN-I < 0.012 ng/ml (0.000-0.120)
[2018-08-28] MEDS: ONDANSETRON 4 MG INJ IV (06:45)
[2018-08-28] MEDS: FAMOTIDINE 20 MG INJ IV (06:45)
[2018-08-28] MEDS: SOD CHLORIDE 0.9% 1,000 ML IV (06:46)
[2018-08-28 07:05] LABS: URINE BLOOD (Dip) POC Negative (NEGATIVE); URINE GLUCOSE (Dip) POC Negative (NEGATIVE); URINE KETONES (Dip) POC 1+ (NEGATIVE); URINE LEUKOCYTE EST (Dip) POC Negative (NEGATIVE); URINE NITRITE (Dip) POC Positive (NEGATIVE); URINE TOTAL PROTEIN POC 1+ (NEGATIVE)
[2018-08-28 07:05] LABS: URINE PH (Dip) POC 6.5 (5.0-8.5)
== END 2018-08-28 09:00 | disposition home or self-care (01) ==
LOC: E/R 05:22
DX: F13.239 Sedative, hypnotic or anxiolytic dependence with withdrawal, unspecified (principal); R11.0 Nausea; R07.9 Chest pain, unspecified
CPT/HCPCS: 36415; 71045; 80048; 81003; 84484; 85025; 93005; 96374; 96375; 99285-25

== ENCOUNTER 2018-09-07 04:43 | Inpatient (IN) | payer OTHER ==
[2018-09-07] MEDS: SOD CHLORIDE 0.9% 1,000 ML IV (06:52)
[2018-09-07 06:55] LABS: ADD MAN DIFF? NO
[2018-09-07 06:56] LABS: WHITE BLOOD COUNT 5.1 10^3/ul (4.8-10.8)
[2018-09-07 06:56] LABS: BASOPHIL # 0.1 10^3/ul (0.0-0.1); BASOPHILS % 1.4 % (0.0-2.0); EOSINOPHILS # 0.1 10^3/ul (0.0-0.5); EOSINOPHILS % 2.2 % (0.0-7.0); HEMATOCRIT 39.5 % (37.0-47.0); HEMOGLOBIN 12.7 g/dl (12.0-16.0); LYMPHOCYTES # 1.7 10^3/ul (0.8-2.9); LYMPHOCYTES % 33.5 % (15.0-51.0); MEAN CORPUSCULAR HEMOGLOBIN 25.3 pg (29.0-33.0); MEAN CORPUSCULAR HGB CONC 32.2 g/dl (32.0-37.0); MEAN CORPUSCULAR VOLUME 78.8 fl (82.0-101.0); MEAN PLATELET VOLUME 12.2 fl (7.4-10.4); MONOCYTE # 0.3 10^3/ul (0.3-0.9); MONOCYTES % 6.7 % (0.0-11.0); NEUTROPHIL # 2.9 10^3/ul (1.6-7.5); PLATELET COUNT 231 10^3/UL (140-415); RED BLOOD COUNT 5.01 10^6/ul (4.20-5.40); RED CELL DISTRIBUTION WIDTH 16.1 % (11.5-14.5)
[2018-09-07 07:15] LABS: INR 1.01; PROTIME 13.4 Sec (11.9-14.9)
[2018-09-07 07:23] LABS: ALANINE AMINOTRANSFERASE 24 IU/L (13-69); ALBUMIN 3.7 g/dl (3.3-4.9); ALBUMIN/GLOBULIN RATIO 1.48; ALKALINE PHOSPHATASE 64 IU/L (42-121); ANION GAP 10 (5-13); ASPARTATE AMINO TRANSFERASE 19 IU/L (15-46); BILIRUBIN,INDIRECT 1.1 mg/dl (0-1.1); BILIRUBIN,TOTAL 1.1 mg/dl (0.2-1.3); BLOOD UREA NITROGEN 9 mg/dl (7-20); CALCIUM 9.7 mg/dl (8.4-10.2); CARBON DIOXIDE 20 mmol/L (21-31); CHLORIDE 107 mmol/L (97-110); CREATININE 0.87 mg/dl (0.44-1.00); Estimated GFR > 60 mL/min (>60); GLUCOSE 91 mg/dl (70-220); LIPASE 70 U/L (23-300); POTASSIUM 4.2 mmol/L (3.5-5.1); SODIUM 137 mmol/L (135-144); TOTAL PROTEIN 6.2 g/dl (6.1-8.1)
[2018-09-07 07:24] LABS: ADD UMIC YES; UR ASCORBIC ACID NEGATIVE (NEGATIVE); UR BACTERIA FEW /HPF (NONE SEEN); UR BILIRUBIN (Dip) NEGATIVE (NEGATIVE); UR BLOOD (Dip) NEGATIVE (NEGATIVE); UR BUDDING YEAST FEW /HPF (NONE SEEN); UR CLARITY SLIGHTLY CLOUDY (CLEAR); UR COLOR YELLOW (YELLOW); UR GLUCOSE (Dip) NEGATIVE (NEGATIVE); UR KETONES (Dip) TRACE mg/dL (NEGATIVE); UR LEUKOCYTE ESTERASE (Dip) 3+ Leu/ul (NEGATIVE); UR NITRITE (Dip) POSITIVE (NEGATIVE); UR RBC 1 /HPF (0-5); UR SPECIFIC GRAVITY (Dip) 1.013 (1.003-1.030); UR SQUAMOUS EPITHELIAL CELL FEW /HPF (FEW); UR TOTAL PROTEIN (Dip) NEGATIVE (NEGATIVE); UR UROBILINOGEN (Dip) NEGATIVE (NEGATIVE); UR WBC 93 /HPF (0-5)
[2018-09-07 07:32] LABS: TROPONIN-I < 0.012 ng/ml (0.000-0.120)
[2018-09-07] MEDS: ONDANSETRON 4 MG INJ IV ×2 (07:43→17:00)
[2018-09-07] MEDS ORDERED: NITROFURANTOIN (SR) 100 MG CAP PO (08:00)
[2018-09-07] MEDS: CEFTRIAXONE 1 GM/50 ML (PMX) 50 ML IVPB (08:01)
[2018-09-07] MEDS: LORAZEPAM 2 MG INJ IV (08:06)
[2018-09-07] MEDS ORDERED: ACETAMINOPHEN 325 MG TAB PO (09:00)
[2018-09-07] MEDS ORDERED: ONDANSETRON 4 MG INJ IV (09:00)
[2018-09-07] MEDS: FLUCONAZOLE 200 MG (PMX) 100 ML IVPB (16:45)
[2018-09-07] MEDS: clonAZEPAM 0.5 MG TAB PO (18:42)
[2018-09-08] MEDS: ONDANSETRON 4 MG TAB PO (00:07)
[2018-09-08] MEDS: ACETAMINOPHEN 325 MG TAB PO ×2 (02:42→20:39)
[2018-09-08] MEDS: ONDANSETRON 4 MG INJ IV ×3 (06:52→20:45)
[2018-09-08] MEDS ORDERED: LORAZEPAM 0.5 MG TAB PO (07:00)
[2018-09-08] MEDS ORDERED: CEFTRIAXONE 1 GM/50 ML (PMX) 50 ML IVPB (08:00)
[2018-09-08] MEDS: RANITIDINE 150 MG TAB PO (09:00)
[2018-09-08] MEDS ORDERED: CIMETIDINE 300 MG TAB PO (09:00)
[2018-09-08] MEDS: CIPROFLOXACIN 400MG/D5W 200 ML IVPB ×2 (12:26→20:41)
[2018-09-08] MEDS: LACTOBACILLUS RHAMNOSUS CAP PO ×2 (12:26→20:41)
[2018-09-08] MEDS: AL HYDROX/MG HYDROX/SIMETH 30 ML CUP PO (12:55)
[2018-09-08] MEDS: LIDOCAINE/MYLANTA 40 ML BTL PO (20:39)
[2018-09-08] MEDS: FLUCONAZOLE 200 MG (PMX) 100 ML IVPB (20:41)
[2018-09-08] MEDS: clonAZEPAM 0.5 MG TAB PO (22:51)
[2018-09-09 07:08] LABS: ADD MAN DIFF? NO
[2018-09-09 07:17] LABS: WHITE BLOOD COUNT 5.1 10^3/ul (4.8-10.8)
[2018-09-09 07:17] LABS: BASOPHIL # 0.1 10^3/ul (0.0-0.1); BASOPHILS % 1.2 % (0.0-2.0); EOSINOPHILS # 0.2 10^3/ul (0.0-0.5); EOSINOPHILS % 3.1 % (0.0-7.0); HEMATOCRIT 40.5 % (37.0-47.0); HEMOGLOBIN 13.1 g/dl (12.0-16.0); LYMPHOCYTES # 1.9 10^3/ul (0.8-2.9); LYMPHOCYTES % 37.5 % (15.0-51.0); MEAN CORPUSCULAR HEMOGLOBIN 25.9 pg (29.0-33.0); MEAN CORPUSCULAR HGB CONC 32.3 g/dl (32.0-37.0); MEAN PLATELET VOLUME 12.6 fl (7.4-10.4); MONOCYTE # 0.4 10^3/ul (0.3-0.9); NEUTROPHIL # 2.6 10^3/ul (1.6-7.5); PLATELET COUNT 229 10^3/UL (140-415); RED BLOOD COUNT 5.06 10^6/ul (4.20-5.40)
[2018-09-09 07:36] LABS: ANION GAP 9 (5-13); BLOOD UREA NITROGEN 7 mg/dl (7-20); CALCIUM 9.7 mg/dl (8.4-10.2); CARBON DIOXIDE 23 mmol/L (21-31); CHLORIDE 107 mmol/L (97-110); CREATININE 0.93 mg/dl (0.44-1.00); Estimated GFR > 60 mL/min (>60); GLUCOSE 82 mg/dl (70-220); MAGNESIUM 2.4 mg/dl (1.7-2.5); POTASSIUM 4.2 mmol/L (3.5-5.1); SODIUM 139 mmol/L (135-144)
[2018-09-09] MEDS: ONDANSETRON 4 MG INJ IV ×2 (08:10→14:25)
[2018-09-09] MEDS: RANITIDINE 150 MG TAB PO (08:13)
[2018-09-09] MEDS: CIPROFLOXACIN 400MG/D5W 200 ML IVPB (08:13)
[2018-09-09] MEDS: LACTOBACILLUS RHAMNOSUS CAP PO ×2 (08:54→20:39)
[2018-09-09] MEDS: ACETAMINOPHEN 325 MG TAB PO ×2 (11:53→18:24)
[2018-09-09] MEDS ORDERED: QUETIAPINE 25 MG TAB PO (13:30)
[2018-09-09] MEDS: SERTRALINE 50 MG TAB PO (13:30)
[2018-09-09] MEDS: CEFTRIAXONE 1 GM/50 ML (PMX) 50 ML IVPB (15:32)
[2018-09-09] MEDS: FLUCONAZOLE 200 MG (PMX) 100 ML IVPB (17:30)
[2018-09-09] MEDS: clonAZEPAM 0.5 MG TAB PO (22:00)
[2018-09-10] MEDS: ACETAMINOPHEN 325 MG TAB PO (02:22)
[2018-09-10] MEDS: ONDANSETRON 4 MG TAB PO ×2 (02:22→08:44)
[2018-09-10 07:35] LABS: ADD MAN DIFF? NO
[2018-09-10 07:39] LABS: BASOPHIL # 0.1 10^3/ul (0.0-0.1); BASOPHILS % 1.5 % (0.0-2.0); EOSINOPHILS # 0.1 10^3/ul (0.0-0.5); EOSINOPHILS % 2.9 % (0.0-7.0); HEMATOCRIT 40.9 % (37.0-47.0); HEMOGLOBIN 12.9 g/dl (12.0-16.0); LYMPHOCYTES # 1.8 10^3/ul (0.8-2.9); MEAN CORPUSCULAR HEMOGLOBIN 25.6 pg (29.0-33.0); MEAN CORPUSCULAR HGB CONC 31.5 g/dl (32.0-37.0); MEAN CORPUSCULAR VOLUME 81.2 fl (82.0-101.0); MEAN PLATELET VOLUME 12.7 fl (7.4-10.4); MONOCYTE # 0.4 10^3/ul (0.3-0.9); MONOCYTES % 7.5 % (0.0-11.0); NEUTROPHIL # 2.4 10^3/ul (1.6-7.5); NEUTROPHILS % 49.9 % (39.0-77.0); PLATELET COUNT 227 10^3/UL (140-415); RED BLOOD COUNT 5.04 10^6/ul (4.20-5.40); RED CELL DISTRIBUTION WIDTH 16.1 % (11.5-14.5)
[2018-09-10 07:39] LABS: WHITE BLOOD COUNT 4.8 10^3/ul (4.8-10.8)
[2018-09-10 08:06] LABS: ANION GAP 8 (5-13); BLOOD UREA NITROGEN 7 mg/dl (7-20); CALCIUM 9.7 mg/dl (8.4-10.2); CARBON DIOXIDE 23 mmol/L (21-31); CHLORIDE 107 mmol/L (97-110); CREATININE 1.03 mg/dl (0.44-1.00); Estimated GFR 54 mL/min (>60); GLUCOSE 78 mg/dl (70-220); POTASSIUM 4.1 mmol/L (3.5-5.1); SODIUM 138 mmol/L (135-144)
[2018-09-10] MEDS: LACTOBACILLUS RHAMNOSUS CAP PO ×2 (08:44→20:24)
[2018-09-10] MEDS: RANITIDINE 150 MG TAB PO (09:00)
[2018-09-10] MEDS: SERTRALINE 50 MG TAB PO (09:00)
[2018-09-10] MEDS: SOD CHLORIDE 0.45% 1,000 ML IV (14:22)
[2018-09-10] MEDS: CEFTRIAXONE 1 GM/50 ML (PMX) 50 ML IVPB (15:41)
[2018-09-10] MEDS: MECLIZINE 12.5 MG TAB PO (15:41)
[2018-09-10] MEDS: clonAZEPAM 0.5 MG TAB PO (21:35)
[2018-09-11 06:13] LABS: ADD MAN DIFF? NO
[2018-09-11 06:20] LABS: BASOPHIL # 0.1 10^3/ul (0.0-0.1); BASOPHILS % 1.6 % (0.0-2.0); EOSINOPHILS # 0.2 10^3/ul (0.0-0.5); EOSINOPHILS % 3.5 % (0.0-7.0); HEMATOCRIT 42.5 % (37.0-47.0); HEMOGLOBIN 13.4 g/dl (12.0-16.0); LYMPHOCYTES # 2.2 10^3/ul (0.8-2.9); LYMPHOCYTES % 43.2 % (15.0-51.0); MEAN CORPUSCULAR HEMOGLOBIN 25.5 pg (29.0-33.0); MEAN CORPUSCULAR HGB CONC 31.5 g/dl (32.0-37.0); MEAN PLATELET VOLUME 11.9 fl (7.4-10.4); MONOCYTE # 0.4 10^3/ul (0.3-0.9); MONOCYTES % 6.8 % (0.0-11.0); NEUTROPHIL # 2.3 10^3/ul (1.6-7.5); NEUTROPHILS % 44.7 % (39.0-77.0); PLATELET COUNT 236 10^3/UL (140-415); RED BLOOD COUNT 5.25 10^6/ul (4.20-5.40); RED CELL DISTRIBUTION WIDTH 16.3 % (11.5-14.5)
[2018-09-11 06:20] LABS: WHITE BLOOD COUNT 5.1 10^3/ul (4.8-10.8)
[2018-09-11 06:43] LABS: ANION GAP 6 (5-13); BLOOD UREA NITROGEN 7 mg/dl (7-20); CALCIUM 9.7 mg/dl (8.4-10.2); CARBON DIOXIDE 25 mmol/L (21-31); CHLORIDE 109 mmol/L (97-110); CREATININE 1.07 mg/dl (0.44-1.00); Estimated GFR 52 mL/min (>60); GLUCOSE 86 mg/dl (70-220); POTASSIUM 4.7 mmol/L (3.5-5.1); SODIUM 140 mmol/L (135-144)
[2018-09-11] MEDS: LACTOBACILLUS RHAMNOSUS CAP PO (08:06)
[2018-09-11] MEDS: ACETAMINOPHEN 325 MG TAB PO (08:06)
[2018-09-11] MEDS: ONDANSETRON 4 MG INJ IV ×3 (08:06→23:05)
[2018-09-11] MEDS: RANITIDINE 150 MG TAB PO (08:15)
[2018-09-11] MEDS: SERTRALINE 50 MG TAB PO (08:15)
[2018-09-11] MEDS: AL HYDROX/MG HYDROX/SIMETH 30 ML CUP PO (16:00)
[2018-09-11] MEDS: MECLIZINE 12.5 MG TAB PO (17:02)
[2018-09-11] MEDS: CEFTRIAXONE 1 GM/50 ML (PMX) 50 ML IVPB (17:40)
[2018-09-11] MEDS: BISACODYL 10 MG SUPP PR (20:10)
[2018-09-11] MEDS: DOCUSATE SODIUM 100 MG CAP PO (20:12)
[2018-09-11] MEDS: RIFAXIMIN 550 MG TAB PO (20:12)
[2018-09-11] MEDS: PE/SHARK OIL/MO/PETROL 30 GM OINT PR ×2 (22:30→23:11)
[2018-09-11] MEDS: traZODone 50 MG TAB PO (22:30)
[2018-09-11] MEDS: HYDROmorphONE 0.5 MG/0.5 ML SYG IV (23:05)
[2018-09-12 07:50] LABS: ANION GAP 7 (5-13); BLOOD UREA NITROGEN 8 mg/dl (7-20); CALCIUM 9.6 mg/dl (8.4-10.2); CARBON DIOXIDE 25 mmol/L (21-31); CHLORIDE 108 mmol/L (97-110); CREATININE 0.93 mg/dl (0.44-1.00); Estimated GFR > 60 mL/min (>60); GLUCOSE 95 mg/dl (70-220); POTASSIUM 4.3 mmol/L (3.5-5.1); SODIUM 140 mmol/L (135-144)
[2018-09-12] MEDS: ONDANSETRON 4 MG INJ IV ×2 (08:37→15:06)
[2018-09-12] MEDS: PE/SHARK OIL/MO/PETROL 30 GM OINT PR ×2 (09:00→20:14)
[2018-09-12] MEDS: RANITIDINE 150 MG TAB PO (09:00)
[2018-09-12] MEDS: SERTRALINE 50 MG TAB PO (09:00)
[2018-09-12] MEDS: RIFAXIMIN 550 MG TAB PO ×3 (09:00→13:00)
[2018-09-12] MEDS: DOCUSATE SODIUM 100 MG CAP PO ×2 (10:00→20:14)
[2018-09-12] MEDS: AL HYDROX/MG HYDROX/SIMETH 30 ML CUP PO (16:07)
[2018-09-12] MEDS: clonAZEPAM 0.5 MG TAB PO (16:20)
[2018-09-12] MEDS: traZODone 50 MG TAB PO (20:14)
[2018-09-13] MEDS: ACETAMINOPHEN 325 MG TAB PO ×2 (06:05→19:57)
[2018-09-13] MEDS: ONDANSETRON 4 MG TAB PO (06:12)
[2018-09-13] MEDS: RANITIDINE 150 MG TAB PO (08:35)
[2018-09-13] MEDS: DOCUSATE SODIUM 100 MG CAP PO ×2 (08:35→20:06)
[2018-09-13] MEDS: SERTRALINE 50 MG TAB PO (08:35)
[2018-09-13] MEDS: PE/SHARK OIL/MO/PETROL 30 GM OINT PR ×2 (09:00→20:07)
[2018-09-13] MEDS: ONDANSETRON 4 MG INJ IV (12:56)
[2018-09-13] MEDS: AL HYDROX/MG HYDROX/SIMETH 30 ML CUP PO (13:00)
[2018-09-13] MEDS: clonAZEPAM 0.5 MG TAB PO (20:04)
[2018-09-13] MEDS: traZODone 50 MG TAB PO (20:07)
[2018-09-14] MEDS: SERTRALINE 50 MG TAB PO (09:00)
[2018-09-14] MEDS: RANITIDINE 150 MG TAB PO (09:00)
[2018-09-14] MEDS: DOCUSATE SODIUM 100 MG CAP PO (09:00)
[2018-09-14] MEDS: PE/SHARK OIL/MO/PETROL 30 GM OINT PR (09:00)
[2018-09-14] MEDS: ACETAMINOPHEN 325 MG TAB PO (09:30)
[2018-09-14] MEDS: ONDANSETRON 4 MG INJ IV ×2 (11:30→15:59)
[2018-09-14] MEDS ORDERED: HYOSCYAMINE 0.125 MG SUBL TAB PO (16:00)
== END 2018-09-14 21:20 | DRG 690 ==
LOC: E/R 04:43 → 5EC 08:35
DX: N39.0 Urinary tract infection, site not specified (principal); Z68.1 Body mass index [BMI] 19.9 or less, adult; E44.0 Moderate protein-calorie malnutrition; R62.7 Adult failure to thrive; M79.7 Fibromyalgia; F41.9 Anxiety disorder, unspecified; K21.9 Gastro-esophageal reflux disease without esophagitis; K58.0 Irritable bowel syndrome with diarrhea; K29.50 Unspecified chronic gastritis without bleeding; B96.20 Unspecified Escherichia coli [E. coli] as the cause of diseases classified elsewhere; F32.9 Major depressive disorder, single episode, unspecified; Z91.19 Patient's noncompliance with other medical treatment and regimen; F22 Delusional disorders
CPT/HCPCS: 36415; 71045; 80048; 80053; 81001; 83690; 83735; 84484; 85025; 85610; 87086; 93005; 96374; 96375; 99217; 99285-25

== ENCOUNTER 2018-09-19 04:20 | Emergency (ER) | payer MEDICAID, OTHER ==
[2018-09-19] MEDS: CHLORDIAZEPOXIDE 25 MG CAP PO (05:08)
== END 2018-09-19 08:15 | disposition home or self-care (01) ==
LOC: E/R 04:20
DX: F13.239 Sedative, hypnotic or anxiolytic dependence with withdrawal, unspecified (principal); J45.909 Unspecified asthma, uncomplicated
CPT/HCPCS: 99283; Z7502

== ENCOUNTER 2018-09-19 12:26 | Emergency (ER) | payer MEDICAID ==
[2018-09-19] MEDS: SOD CHLORIDE 0.9% 1,000 ML IV (18:18)
[2018-09-19] MEDS: ONDANSETRON 4 MG INJ IV (18:18)
== END 2018-09-19 19:21 | disposition home or self-care (01) ==
LOC: E/R 12:26
DX: F13.230 Sedative, hypnotic or anxiolytic dependence with withdrawal, uncomplicated (principal); E86.0 Dehydration
CPT/HCPCS: 36415; 96361; 96374; 99284-25

== ENCOUNTER 2018-09-30 10:36 | Emergency (ER) | payer OTHER, MEDICAID ==
[2018-09-30] MEDS: METOCLOPRAMIDE 10 MG INJ IV (11:14)
[2018-09-30] MEDS: KETOROLAC 30 MG INJ IV (11:14)
[2018-09-30] MEDS: SOD CHLORIDE 0.9% 1,000 ML IV (11:14)
[2018-09-30] MEDS: DIPHENHYDRAMINE 50 MG INJ IV (11:14)
[2018-09-30 11:25] LABS: ADD MAN DIFF? NO
[2018-09-30 11:26] LABS: WHITE BLOOD COUNT 4.8 10^3/ul (4.8-10.8)
[2018-09-30 11:26] LABS: BASOPHIL # 0.1 10^3/ul (0.0-0.1); EOSINOPHILS # 0.1 10^3/ul (0.0-0.5); EOSINOPHILS % 1.3 % (0.0-7.0); HEMATOCRIT 37.7 % (37.0-47.0); LYMPHOCYTES # 1.5 10^3/ul (0.8-2.9); LYMPHOCYTES % 31.9 % (15.0-51.0); MEAN CORPUSCULAR HEMOGLOBIN 25.8 pg (29.0-33.0); MEAN CORPUSCULAR HGB CONC 31.8 g/dl (32.0-37.0); MEAN CORPUSCULAR VOLUME 81.1 fl (82.0-101.0); MEAN PLATELET VOLUME 12.4 fl (7.4-10.4); MONOCYTE # 0.3 10^3/ul (0.3-0.9); MONOCYTES % 6.9 % (0.0-11.0); NEUTROPHIL # 2.8 10^3/ul (1.6-7.5); NEUTROPHILS % 58.7 % (39.0-77.0); PLATELET COUNT 211 10^3/UL (140-415); RED BLOOD COUNT 4.65 10^6/ul (4.20-5.40); RED CELL DISTRIBUTION WIDTH 15.5 % (11.5-14.5)
[2018-09-30 11:51] LABS: ALANINE AMINOTRANSFERASE 17 IU/L (13-69); ALBUMIN 3.5 g/dl (3.3-4.9); ALBUMIN/GLOBULIN RATIO 1.45; ALKALINE PHOSPHATASE 54 IU/L (42-121); ANION GAP 8 (5-13); ASPARTATE AMINO TRANSFERASE 18 IU/L (15-46); BILIRUBIN,INDIRECT 0.7 mg/dl (0-1.1); BILIRUBIN,TOTAL 0.7 mg/dl (0.2-1.3); BLOOD UREA NITROGEN 7 mg/dl (7-20); CALCIUM 9.2 mg/dl (8.4-10.2); CARBON DIOXIDE 25 mmol/L (21-31); CHLORIDE 106 mmol/L (97-110); CREATININE 0.95 mg/dl (0.44-1.00); Estimated GFR 60 mL/min (>60); GLUCOSE 117 mg/dl (70-220); POTASSIUM 4.1 mmol/L (3.5-5.1); SODIUM 139 mmol/L (135-144); TOTAL PROTEIN 5.9 g/dl (6.1-8.1)
[2018-09-30 12:19] LABS: TROPONIN-I < 0.012 ng/ml (0.000-0.120)
== END 2018-09-30 13:52 | disposition home or self-care (01) ==
LOC: E/R 13:52
DX: G43.909 Migraine, unspecified, not intractable, without status migrainosus (principal); M79.7 Fibromyalgia
CPT/HCPCS: 36415; 70450; 80053; 84484; 85025; 96374; 96375; 99285-25

== ENCOUNTER 2018-10-03 03:06 | Emergency (ER) | payer SELFPAY, OTHER | END 2018-10-03 05:11 | disposition left against medical advice (07) | LOC: E/R 03:06 | DX: Z53.21 Procedure and treatment not carried out due to patient leaving prior to being seen by health care provider (principal) ==

== ENCOUNTER 2018-10-04 10:24 | Emergency (ER) | payer OTHER | END 2018-10-04 14:10 | disposition home or self-care (01) | LOC: E/R 10:24 | DX: F41.9 Anxiety disorder, unspecified (principal); R40.2142 Coma scale, eyes open, spontaneous, at arrival to emergency department; R40.2362 Coma scale, best motor response, obeys commands, at arrival to emergency department; R40.2252 Coma scale, best verbal response, oriented, at arrival to emergency department; J45.909 Unspecified asthma, uncomplicated | CPT/HCPCS: 99282; Z7502 ==

== ENCOUNTER 2018-10-07 04:23 | Emergency (ER) | payer OTHER ==
[2018-10-07] MEDS: SOD CHLORIDE 0.9% 1,000 ML IV (05:05)
[2018-10-07 05:13] LABS: URINE BLOOD (Dip) POC Negative (NEGATIVE); URINE GLUCOSE (Dip) POC Negative (NEGATIVE); URINE KETONES (Dip) POC Negative (NEGATIVE); URINE LEUKOCYTE EST (Dip) POC Trace (NEGATIVE); URINE NITRITE (Dip) POC Negative (NEGATIVE); URINE TOTAL PROTEIN POC Negative (NEGATIVE)
[2018-10-07 05:28] LABS: ADD MAN DIFF? NO
[2018-10-07 05:30] LABS: WHITE BLOOD COUNT 6.3 10^3/ul (4.8-10.8)
[2018-10-07 05:30] LABS: BASOPHIL # 0.1 10^3/ul (0.0-0.1); BASOPHILS % 1.6 % (0.0-2.0); EOSINOPHILS # 0.1 10^3/ul (0.0-0.5); EOSINOPHILS % 1.9 % (0.0-7.0); HEMATOCRIT 39.8 % (37.0-47.0); HEMOGLOBIN 12.9 g/dl (12.0-16.0); LYMPHOCYTES # 2.7 10^3/ul (0.8-2.9); LYMPHOCYTES % 43.6 % (15.0-51.0); MEAN CORPUSCULAR HEMOGLOBIN 25.6 pg (29.0-33.0); MEAN CORPUSCULAR HGB CONC 32.4 g/dl (32.0-37.0); MEAN CORPUSCULAR VOLUME 79.1 fl (82.0-101.0); MEAN PLATELET VOLUME 11.9 fl (7.4-10.4); MONOCYTE # 0.4 10^3/ul (0.3-0.9); MONOCYTES % 6.1 % (0.0-11.0); NEUTROPHIL # 2.9 10^3/ul (1.6-7.5); NEUTROPHILS % 46.5 % (39.0-77.0); PLATELET COUNT 277 10^3/UL (140-415); RED BLOOD COUNT 5.03 10^6/ul (4.20-5.40); RED CELL DISTRIBUTION WIDTH 15.3 % (11.5-14.5)
[2018-10-07 05:39] LABS: ADD UMIC NO; UR ASCORBIC ACID NEGATIVE (NEGATIVE); UR BILIRUBIN (Dip) NEGATIVE (NEGATIVE); UR BLOOD (Dip) NEGATIVE (NEGATIVE); UR CLARITY CLEAR (CLEAR); UR COLOR YELLOW (YELLOW); UR GLUCOSE (Dip) NEGATIVE (NEGATIVE); UR KETONES (Dip) NEGATIVE (NEGATIVE); UR LEUKOCYTE ESTERASE (Dip) NEGATIVE Leu/ul (NEGATIVE); UR NITRITE (Dip) NEGATIVE (NEGATIVE); UR SPECIFIC GRAVITY (Dip) 1.012 (1.003-1.030); UR TOTAL PROTEIN (Dip) NEGATIVE (NEGATIVE); UR UROBILINOGEN (Dip) NEGATIVE (NEGATIVE)
[2018-10-07 06:06] LABS: ALANINE AMINOTRANSFERASE 27 IU/L (13-69); ALBUMIN 3.9 g/dl (3.3-4.9); ALBUMIN/GLOBULIN RATIO 1.44; ALKALINE PHOSPHATASE 78 IU/L (42-121); ANION GAP 10 (5-13); ASPARTATE AMINO TRANSFERASE 19 IU/L (15-46); BILIRUBIN,INDIRECT 0.6 mg/dl (0-1.1); BILIRUBIN,TOTAL 0.6 mg/dl (0.2-1.3); BLOOD UREA NITROGEN 6 mg/dl (7-20); CALCIUM 9.8 mg/dl (8.4-10.2); CARBON DIOXIDE 20 mmol/L (21-31); CHLORIDE 111 mmol/L (97-110); CREATININE 0.87 mg/dl (0.44-1.00); Estimated GFR > 60 mL/min (>60); GLUCOSE 103 mg/dl (70-220); LIPASE 49 U/L (23-300); POTASSIUM 3.7 mmol/L (3.5-5.1); SODIUM 141 mmol/L (135-144); TOTAL PROTEIN 6.6 g/dl (6.1-8.1)
[2018-10-07 06:17] LABS: TROPONIN-I < 0.012 ng/ml (0.000-0.120)
[2018-10-07] MEDS: ONDANSETRON 4 MG INJ IV (06:52)
[2018-10-07] MEDS: KETOROLAC 15 MG INJ IV (06:53)
== END 2018-10-07 08:36 | disposition home or self-care (01) ==
LOC: E/R 04:23
DX: F13.230 Sedative, hypnotic or anxiolytic dependence with withdrawal, uncomplicated (principal); K58.2 Mixed irritable bowel syndrome; F41.9 Anxiety disorder, unspecified; J45.909 Unspecified asthma, uncomplicated
CPT/HCPCS: 36415; 71045; 80053; 81003; 83690; 84484; 85025; 93005; 96361; 96374; 99285-25

== ENCOUNTER 2018-10-11 07:16 | Emergency (ER) | payer OTHER ==
[2018-10-11 08:26] LABS: ADD UMIC YES; UR ASCORBIC ACID NEGATIVE (NEGATIVE); UR BACTERIA FEW /HPF (NONE SEEN); UR BILIRUBIN (Dip) NEGATIVE (NEGATIVE); UR BLOOD (Dip) NEGATIVE (NEGATIVE); UR CLARITY CLEAR (CLEAR); UR COLOR YELLOW (YELLOW); UR GLUCOSE (Dip) NEGATIVE (NEGATIVE); UR KETONES (Dip) NEGATIVE (NEGATIVE); UR LEUKOCYTE ESTERASE (Dip) TRACE Leu/ul (NEGATIVE); UR NITRITE (Dip) NEGATIVE (NEGATIVE); UR RBC 1 /HPF (0-5); UR SPECIFIC GRAVITY (Dip) 1.013 (1.003-1.030); UR TOTAL PROTEIN (Dip) NEGATIVE (NEGATIVE); UR UROBILINOGEN (Dip) NEGATIVE (NEGATIVE); UR WBC 1 /HPF (0-5)
[2018-10-11] MEDS: ONDANSETRON (ODT) 4 MG TAB ODT (09:13)
[2018-10-11 09:48] LABS: ADD MAN DIFF? NO
[2018-10-11 09:50] LABS: WHITE BLOOD COUNT 7.5 10^3/ul (4.8-10.8)
[2018-10-11 09:50] LABS: BASOPHIL # 0.1 10^3/ul (0.0-0.1); BASOPHILS % 1.2 % (0.0-2.0); EOSINOPHILS # 0.1 10^3/ul (0.0-0.5); EOSINOPHILS % 1.1 % (0.0-7.0); HEMATOCRIT 45.9 % (37.0-47.0); HEMOGLOBIN 14.5 g/dl (12.0-16.0); LYMPHOCYTES # 2.5 10^3/ul (0.8-2.9); LYMPHOCYTES % 33.6 % (15.0-51.0); MEAN CORPUSCULAR HEMOGLOBIN 25.8 pg (29.0-33.0); MEAN CORPUSCULAR HGB CONC 31.6 g/dl (32.0-37.0); MEAN CORPUSCULAR VOLUME 81.5 fl (82.0-101.0); MEAN PLATELET VOLUME 11.5 fl (7.4-10.4); MONOCYTE # 0.5 10^3/ul (0.3-0.9); MONOCYTES % 6.4 % (0.0-11.0); NEUTROPHIL # 4.3 10^3/ul (1.6-7.5); NEUTROPHILS % 57.4 % (39.0-77.0); PLATELET COUNT 308 10^3/UL (140-415); RED BLOOD COUNT 5.63 10^6/ul (4.20-5.40); RED CELL DISTRIBUTION WIDTH 15.5 % (11.5-14.5)
[2018-10-11] MEDS: LACTATED RINGER'S 1,000 ML IV (09:55)
[2018-10-11] MEDS: CEFTRIAXONE 1 GM/50 ML (PMX) 50 ML IVPB (09:55)
[2018-10-11 10:07] LABS: ANION GAP 10 (5-13); BLOOD UREA NITROGEN 8 mg/dl (7-20); CALCIUM 10.4 mg/dl (8.4-10.2); CARBON DIOXIDE 27 mmol/L (21-31); CHLORIDE 103 mmol/L (97-110); Estimated GFR 56 mL/min (>60); GLUCOSE 95 mg/dl (70-220); POTASSIUM 4.2 mmol/L (3.5-5.1); SODIUM 140 mmol/L (135-144)
== END 2018-10-11 13:07 | disposition home or self-care (01) ==
LOC: FTE 07:16 → E/R 13:07
DX: R30.0 Dysuria (principal); F41.1 Generalized anxiety disorder; J45.909 Unspecified asthma, uncomplicated
CPT/HCPCS: 80048; 81001; 85025; 87086; 96374; 99284-25

== ENCOUNTER → 2018-10-13 | Emergency (ER) | payer OTHER ==
[2018-10-13 05:34] LABS: URINE BLOOD (Dip) POC Negative (NEGATIVE); URINE GLUCOSE (Dip) POC Negative (NEGATIVE); URINE KETONES (Dip) POC Negative (NEGATIVE); URINE LEUKOCYTE EST (Dip) POC Negative (NEGATIVE); URINE NITRITE (Dip) POC Negative (NEGATIVE); URINE TOTAL PROTEIN POC Negative (NEGATIVE)
== END | disposition home or self-care (01) ==
LOC: FTE 05:16
DX: R10.9 Unspecified abdominal pain (principal); J45.909 Unspecified asthma, uncomplicated
CPT/HCPCS: 81003; 99282

== ENCOUNTER 2019-01-29 08:22 | Inpatient (IN) | payer OTHER ==
[2019-01-29] MEDS: FAMOTIDINE 20 MG INJ IV (09:54)
[2019-01-29] MEDS: LIDOCAINE/MYLANTA 40 ML BTL PO ×2 (09:54→22:49)
[2019-01-29] MEDS: SOD CHLORIDE 0.9% 1,000 ML IV (09:54)
[2019-01-29] MEDS: ONDANSETRON 4 MG INJ IV ×3 (09:54→18:45)
[2019-01-29 09:55] LABS: ADD MAN DIFF? NO
[2019-01-29 10:02] LABS: WHITE BLOOD COUNT 5.2 10^3/ul (4.8-10.8)
[2019-01-29 10:02] LABS: BASOPHIL # 0.1 10^3/ul (0.0-0.1); BASOPHILS % 1.5 % (0.0-2.0); EOSINOPHILS # 0.1 10^3/ul (0.0-0.5); EOSINOPHILS % 1.9 % (0.0-7.0); HEMATOCRIT 48.2 % (37.0-47.0); MEAN CORPUSCULAR HEMOGLOBIN 25.4 pg (29.0-33.0); MEAN CORPUSCULAR HGB CONC 31.1 g/dl (32.0-37.0); MEAN CORPUSCULAR VOLUME 81.7 fl (82.0-101.0); MEAN PLATELET VOLUME 11.9 fl (7.4-10.4); MONOCYTE # 0.3 10^3/ul (0.3-0.9); NEUTROPHIL # 2.7 10^3/ul (1.6-7.5); NEUTROPHILS % 52.4 % (39.0-77.0); PLATELET COUNT 235 10^3/UL (140-415); RED CELL DISTRIBUTION WIDTH 13.4 % (11.5-14.5)
[2019-01-29 10:19] LABS: ALANINE AMINOTRANSFERASE 20 IU/L (13-69); ALBUMIN 4.6 g/dl (3.3-4.9); ALBUMIN/GLOBULIN RATIO 1.39; ALKALINE PHOSPHATASE 86 IU/L (42-121); ANION GAP 11 (5-13); ASPARTATE AMINO TRANSFERASE 27 IU/L (15-46); BILIRUBIN,INDIRECT 2.4 mg/dl (0-1.1); BILIRUBIN,TOTAL 2.4 mg/dl (0.2-1.3); BLOOD UREA NITROGEN 13 mg/dl (7-20); CARBON DIOXIDE 24 mmol/L (21-31); CHLORIDE 104 mmol/L (97-110); CREATININE 1.19 mg/dl (0.44-1.00); Estimated GFR 46 mL/min (>60); GLUCOSE 94 mg/dl (70-220); LIPASE 77 U/L (23-300); POTASSIUM 4.7 mmol/L (3.5-5.1); SODIUM 139 mmol/L (135-144); TOTAL PROTEIN 7.9 g/dl (6.1-8.1)
[2019-01-29] MEDS: morphine 4 MG/ML VIAL IV (11:07)
[2019-01-29 11:31] LABS: ADD UMIC YES; UR ASCORBIC ACID NEGATIVE (NEGATIVE); UR BILIRUBIN (Dip) NEGATIVE (NEGATIVE); UR BLOOD (Dip) 1+ mg/dL (NEGATIVE); UR CLARITY CLEAR (CLEAR); UR COLOR COLORLESS (YELLOW); UR GLUCOSE (Dip) NEGATIVE (NEGATIVE); UR KETONES (Dip) TRACE mg/dL (NEGATIVE); UR LEUKOCYTE ESTERASE (Dip) NEGATIVE Leu/ul (NEGATIVE); UR NITRITE (Dip) NEGATIVE (NEGATIVE); UR RBC 0 /HPF (0-5); UR SPECIFIC GRAVITY (Dip) 1.003 (1.003-1.030); UR TOTAL PROTEIN (Dip) NEGATIVE (NEGATIVE); UR UROBILINOGEN (Dip) NEGATIVE (NEGATIVE); UR WBC 0 /HPF (0-5)
[2019-01-29] MEDS ORDERED: ACETAMINOPHEN 325 MG TAB PO (12:00)
[2019-01-29] MEDS ORDERED: ONDANSETRON 4 MG INJ IV (12:00)
[2019-01-29] MEDS ORDERED: DOCUSATE SODIUM 100 MG CAP PO (15:30)
[2019-01-29] MEDS ORDERED: ZOLPIDEM 5 MG TAB PO (15:30)
[2019-01-29] MEDS ORDERED: HYDROCODONE/APAP (5/325) TAB PO (15:30)
[2019-01-29] MEDS: DEXTROSE 5%-0.45% NACL 1,000 ML IV (15:45)
[2019-01-29] MEDS: DOCUSATE SODIUM 100 MG CAP PO (21:00)
[2019-01-29] MEDS: RANITIDINE 150 MG TAB PO (21:00)
[2019-01-29] MEDS: HEPARIN 5,000 UNIT/1 ML VIAL SC (21:00)
[2019-01-29] MEDS ORDERED: AL HYDROX/MG HYDROX/SIMETH 30 ML CUP PO (21:30)
[2019-01-30] MEDS: SUMATRIPTAN 25 MG TAB PO (00:18)
[2019-01-30] MEDS: ONDANSETRON 4 MG INJ IV (06:00)
[2019-01-30] MEDS: HYDROmorphONE 0.5 MG/0.5 ML SYG IV (06:01)
[2019-01-30 07:26] LABS: ADD MAN DIFF? NO
[2019-01-30 07:34] LABS: BASOPHIL # 0.1 10^3/ul (0.0-0.1); BASOPHILS % 1.1 % (0.0-2.0); EOSINOPHILS # 0.1 10^3/ul (0.0-0.5); EOSINOPHILS % 3.2 % (0.0-7.0); HEMATOCRIT 45.3 % (37.0-47.0); HEMOGLOBIN 13.9 g/dl (12.0-16.0); LYMPHOCYTES # 1.9 10^3/ul (0.8-2.9); LYMPHOCYTES % 43.1 % (15.0-51.0); MEAN CORPUSCULAR HEMOGLOBIN 25.6 pg (29.0-33.0); MEAN CORPUSCULAR HGB CONC 30.7 g/dl (32.0-37.0); MEAN CORPUSCULAR VOLUME 83.4 fl (82.0-101.0); MEAN PLATELET VOLUME 11.7 fl (7.4-10.4); MONOCYTE # 0.2 10^3/ul (0.3-0.9); MONOCYTES % 5.5 % (0.0-11.0); NEUTROPHIL # 2.1 10^3/ul (1.6-7.5); NEUTROPHILS % 46.9 % (39.0-77.0); PLATELET COUNT 227 10^3/UL (140-415); RED BLOOD COUNT 5.43 10^6/ul (4.20-5.40); RED CELL DISTRIBUTION WIDTH 13.2 % (11.5-14.5)
[2019-01-30 07:34] LABS: WHITE BLOOD COUNT 4.4 10^3/ul (4.8-10.8)
[2019-01-30 08:00] LABS: ALANINE AMINOTRANSFERASE 25 IU/L (13-69); ALBUMIN 3.7 g/dl (3.3-4.9); ALBUMIN/GLOBULIN RATIO 1.32; ALKALINE PHOSPHATASE 58 IU/L (42-121); ANION GAP 5 (5-13); ASPARTATE AMINO TRANSFERASE 21 IU/L (15-46); BILIRUBIN,INDIRECT 2.6 mg/dl (0-1.1); BILIRUBIN,TOTAL 2.6 mg/dl (0.2-1.3); BLOOD UREA NITROGEN 8 mg/dl (7-20); CALCIUM 9.6 mg/dl (8.4-10.2); CARBON DIOXIDE 27 mmol/L (21-31); CHLORIDE 108 mmol/L (97-110); CREATININE 1.09 mg/dl (0.44-1.00); Estimated GFR 51 mL/min (>60); GLUCOSE 83 mg/dl (70-220); MAGNESIUM 2.4 mg/dl (1.7-2.5); SODIUM 140 mmol/L (135-144); TOTAL PROTEIN 6.5 g/dl (6.1-8.1)
[2019-01-30 08:05] LABS: TROPONIN-I < 0.012 ng/ml (0.000-0.120)
[2019-01-30] MEDS: DOCUSATE SODIUM 100 MG CAP PO ×3 (09:00→20:53)
[2019-01-30] MEDS: HEPARIN 5,000 UNIT/1 ML VIAL SC ×3 (09:00→20:54)
[2019-01-30] MEDS ORDERED: LORAZEPAM 1 MG TAB PO (13:30)
[2019-01-30 13:37] LABS: TROPONIN-I < 0.012 ng/ml (0.000-0.120)
[2019-01-30] MEDS: LIDOCAINE/MYLANTA 40 ML BTL PO (14:23)
[2019-01-30] MEDS: DEXTROSE 5%-0.45% NACL 1,000 ML IV ×2 (14:24→20:56)
[2019-01-30] MEDS ORDERED: LIDOCAINE/MYLANTA 40 ML BTL PO (14:30)
[2019-01-30] MEDS: LORAZEPAM 0.5 MG TAB PO (15:47)
[2019-01-30 19:05] LABS: INR 1.08; PROTIME 14.1 Sec (11.9-14.9); PT RATIO 1.1
[2019-01-30 19:06] LABS: PARTIAL THROMBOPLASTIN TIME 33.1 Sec (23.0-35.0)
[2019-01-31 05:24] LABS: ADD MAN DIFF? NO
[2019-01-31 05:34] LABS: WHITE BLOOD COUNT 6.3 10^3/ul (4.8-10.8)
[2019-01-31 05:34] LABS: BASOPHIL # 0.1 10^3/ul (0.0-0.1); BASOPHILS % 1.1 % (0.0-2.0); EOSINOPHILS # 0.2 10^3/ul (0.0-0.5); EOSINOPHILS % 3.6 % (0.0-7.0); HEMATOCRIT 44.1 % (37.0-47.0); HEMOGLOBIN 13.8 g/dl (12.0-16.0); LYMPHOCYTES # 3.2 10^3/ul (0.8-2.9); LYMPHOCYTES % 50.2 % (15.0-51.0); MEAN CORPUSCULAR HEMOGLOBIN 25.8 pg (29.0-33.0); MEAN CORPUSCULAR HGB CONC 31.3 g/dl (32.0-37.0); MEAN CORPUSCULAR VOLUME 82.6 fl (82.0-101.0); MEAN PLATELET VOLUME 12.5 fl (7.4-10.4); MONOCYTE # 0.4 10^3/ul (0.3-0.9); MONOCYTES % 6.5 % (0.0-11.0); NEUTROPHIL # 2.4 10^3/ul (1.6-7.5); NEUTROPHILS % 38.4 % (39.0-77.0); PLATELET COUNT 203 10^3/UL (140-415); RED BLOOD COUNT 5.34 10^6/ul (4.20-5.40); RED CELL DISTRIBUTION WIDTH 13.3 % (11.5-14.5)
[2019-01-31] MEDS: DEXTROSE 5%-0.45% NACL 1,000 ML IV ×2 (05:34→22:50)
[2019-01-31 06:13] LABS: ALANINE AMINOTRANSFERASE 24 IU/L (13-69); ALBUMIN 3.6 g/dl (3.3-4.9); ALBUMIN/GLOBULIN RATIO 1.28; ALKALINE PHOSPHATASE 61 IU/L (42-121); ANION GAP 6 (5-13); ASPARTATE AMINO TRANSFERASE 26 IU/L (15-46); BILIRUBIN,INDIRECT 1.8 mg/dl (0-1.1); BILIRUBIN,TOTAL 1.8 mg/dl (0.2-1.3); BLOOD UREA NITROGEN 12 mg/dl (7-20); CALCIUM 9.4 mg/dl (8.4-10.2); CARBON DIOXIDE 28 mmol/L (21-31); CHLORIDE 104 mmol/L (97-110); CREATININE 1.17 mg/dl (0.44-1.00); Estimated GFR 47 mL/min (>60); GLUCOSE 81 mg/dl (70-220); MAGNESIUM 2.6 mg/dl (1.7-2.5); POTASSIUM 4.3 mmol/L (3.5-5.1); SODIUM 138 mmol/L (135-144); TOTAL PROTEIN 6.4 g/dl (6.1-8.1)
[2019-01-31] MEDS: ONDANSETRON 4 MG INJ IV ×2 (06:14→14:06)
[2019-01-31] MEDS: morphine 2 MG INJ IV ×2 (06:15→12:39)
[2019-01-31] MEDS: DOCUSATE SODIUM 100 MG CAP PO ×2 (08:32→20:52)
[2019-01-31] MEDS: FAMOTIDINE 20 MG TAB PO (08:32)
[2019-01-31] MEDS: HEPARIN 5,000 UNIT/1 ML VIAL SC ×2 (08:35→20:52)
[2019-01-31] MEDS ORDERED: CIPRO 400 MG/200 ML D5W IVPB (10:00)
[2019-01-31] MEDS ORDERED: PROPOFOL 100 ML (10:22)
[2019-01-31] MEDS ORDERED: LIDOCAINE 2% (SDV) 5 ML INJ (10:25)
[2019-01-31] MEDS ORDERED: ROCURONIUM 50 MG INJ (10:25)
[2019-01-31] MEDS ORDERED: DEXAMETHASONE 4 MG/ML 5 ML INJ (10:55)
[2019-01-31] MEDS: BUPIVACAINE 0.25%/EPI (SDV) 10 ML INJ (11:03)
[2019-01-31] MEDS: LIDOCAINE 1% (MPF) 30 ML INJ (11:03)
[2019-01-31] MEDS ORDERED: ONDANSETRON 4 MG INJ (11:04)
[2019-01-31] MEDS ORDERED: SUGAMMADEX SODIUM 200 MG/2 ML VIAL IV (11:25)
[2019-01-31] MEDS ORDERED: PHENYLephrine (100 MCG/ML) 10ML SYG (11:25)
[2019-01-31] MEDS ORDERED: hydrALAzine 20 MG INJ IV (12:00)
[2019-01-31] MEDS ORDERED: MEPERIDINE 25 MG INJ IV (12:00)
[2019-01-31] MEDS ORDERED: METOCLOPRAMIDE 10 MG INJ IV (12:00)
[2019-01-31] MEDS ORDERED: ALBUTEROL 0.083% (NEB) 2.5 MG/3 ML AMP HHN (12:00)
[2019-01-31] MEDS ORDERED: DIPHENHYDRAMINE 50 MG INJ IV (12:00)
[2019-01-31] MEDS ORDERED: LABETALOL HCL 20MG INJ IV (12:00)
[2019-01-31] MEDS ORDERED: FENTAnyl 50 MCG/ML VIAL IV ×2 (12:00)
[2019-01-31] MEDS ORDERED: HYDROmorphONE 1 MG/5 ML IV SYRINGE IV ×2 (12:00)
[2019-01-31] MEDS ORDERED: EPHEDrine 25 MG/5 ML SYG IV (12:00)
[2019-01-31] MEDS ORDERED: ONDANSETRON 4 MG INJ IV (12:00)
[2019-01-31] MEDS ORDERED: morphine 4 MG/ML VIAL (15:57)
[2019-01-31] MEDS: morphine 4 MG/ML VIAL IV ×2 (16:14→20:48)
[2019-01-31] MEDS ORDERED: morphine 4 MG/ML VIAL IV (17:30)
[2019-01-31] MEDS: MAGNESIUM HYDROXIDE 30ML CUP PO (20:48)
[2019-02-01] MEDS: morphine 4 MG/ML VIAL IV ×5 (03:21→23:52)
[2019-02-01 05:41] LABS: ADD MAN DIFF? NO
[2019-02-01 05:43] LABS: BASOPHILS % 0.3 % (0.0-2.0); EOSINOPHILS % 0.1 % (0.0-7.0); HEMATOCRIT 45.1 % (37.0-47.0); HEMOGLOBIN 14.2 g/dl (12.0-16.0); LYMPHOCYTES # 2.2 10^3/ul (0.8-2.9); LYMPHOCYTES % 14.6 % (15.0-51.0); MEAN CORPUSCULAR HGB CONC 31.5 g/dl (32.0-37.0); MEAN CORPUSCULAR VOLUME 82.4 fl (82.0-101.0); MEAN PLATELET VOLUME 12.2 fl (7.4-10.4); MONOCYTES % 6.6 % (0.0-11.0); NEUTROPHIL # 11.9 10^3/ul (1.6-7.5); NEUTROPHILS % 77.9 % (39.0-77.0); PLATELET COUNT 209 10^3/UL (140-415); RED BLOOD COUNT 5.47 10^6/ul (4.20-5.40); RED CELL DISTRIBUTION WIDTH 13.1 % (11.5-14.5)
[2019-02-01 05:43] LABS: WHITE BLOOD COUNT 15.2 10^3/ul (4.8-10.8)
[2019-02-01 05:58] LABS: MAGNESIUM 2.3 mg/dl (1.7-2.5)
[2019-02-01 05:58] LABS: PHOSPHORUS 4.5 mg/dl (2.5-4.9)
[2019-02-01 06:03] LABS: ALANINE AMINOTRANSFERASE 43 IU/L (13-69); ALBUMIN 4.1 g/dl (3.3-4.9); ALBUMIN/GLOBULIN RATIO 1.46; ALKALINE PHOSPHATASE 63 IU/L (42-121); ANION GAP 8 (5-13); ASPARTATE AMINO TRANSFERASE 51 IU/L (15-46); BILIRUBIN,INDIRECT 2.1 mg/dl (0-1.1); BILIRUBIN,TOTAL 2.1 mg/dl (0.2-1.3); BLOOD UREA NITROGEN 12 mg/dl (7-20); CALCIUM 9.9 mg/dl (8.4-10.2); CARBON DIOXIDE 31 mmol/L (21-31); CHLORIDE 99 mmol/L (97-110); CREATININE 1.22 mg/dl (0.44-1.00); Estimated GFR 45 mL/min (>60); GLUCOSE 90 mg/dl (70-220); SODIUM 138 mmol/L (135-144); TOTAL PROTEIN 6.9 g/dl (6.1-8.1)
[2019-02-01] MEDS: DOCUSATE SODIUM 100 MG CAP PO ×2 (09:00→20:13)
[2019-02-01] MEDS: HEPARIN 5,000 UNIT/1 ML VIAL SC ×2 (09:00→20:14)
[2019-02-01] MEDS: FAMOTIDINE 20 MG TAB PO (09:15)
[2019-02-01] MEDS: ONDANSETRON 4 MG INJ IV (09:15)
[2019-02-01] MEDS: SOD CHLORIDE 0.9% 1,000 ML IV (15:04)
[2019-02-01] MEDS: HYOSCYAMINE 0.125 MG SUBL TAB SL (15:06)
[2019-02-01] MEDS: DEXTROSE 5%-0.45% NACL 1,000 ML IV (15:09)
[2019-02-02 05:35] LABS: ADD MAN DIFF? NO
[2019-02-02 05:39] LABS: BASOPHIL # 0.1 10^3/ul (0.0-0.1); BASOPHILS % 0.6 % (0.0-2.0); EOSINOPHILS # 0.1 10^3/ul (0.0-0.5); EOSINOPHILS % 1.5 % (0.0-7.0); HEMATOCRIT 40.8 % (37.0-47.0); HEMOGLOBIN 12.4 g/dl (12.0-16.0); LYMPHOCYTES # 2.7 10^3/ul (0.8-2.9); LYMPHOCYTES % 33.3 % (15.0-51.0); MEAN CORPUSCULAR HEMOGLOBIN 25.5 pg (29.0-33.0); MEAN CORPUSCULAR HGB CONC 30.4 g/dl (32.0-37.0); MEAN CORPUSCULAR VOLUME 83.8 fl (82.0-101.0); MEAN PLATELET VOLUME 12.2 fl (7.4-10.4); MONOCYTE # 0.6 10^3/ul (0.3-0.9); MONOCYTES % 7.2 % (0.0-11.0); NEUTROPHIL # 4.7 10^3/ul (1.6-7.5); NEUTROPHILS % 57.3 % (39.0-77.0); PLATELET COUNT 181 10^3/UL (140-415); RED BLOOD COUNT 4.87 10^6/ul (4.20-5.40); RED CELL DISTRIBUTION WIDTH 13.2 % (11.5-14.5)
[2019-02-02 05:39] LABS: WHITE BLOOD COUNT 8.1 10^3/ul (4.8-10.8)
[2019-02-02 05:59] LABS: ALANINE AMINOTRANSFERASE 43 IU/L (13-69); ALKALINE PHOSPHATASE 55 IU/L (42-121); ANION GAP 4 (5-13); ASPARTATE AMINO TRANSFERASE 34 IU/L (15-46); BILIRUBIN,INDIRECT 1.3 mg/dl (0-1.1); BILIRUBIN,TOTAL 1.3 mg/dl (0.2-1.3); BLOOD UREA NITROGEN 12 mg/dl (7-20); CALCIUM 9.1 mg/dl (8.4-10.2); CARBON DIOXIDE 31 mmol/L (21-31); CHLORIDE 102 mmol/L (97-110); CREATININE 1.16 mg/dl (0.44-1.00); Estimated GFR 47 mL/min (>60); GLUCOSE 78 mg/dl (70-220); POTASSIUM 4.4 mmol/L (3.5-5.1); SODIUM 137 mmol/L (135-144)
[2019-02-02 06:00] LABS: ALBUMIN 3.1 g/dl (3.3-4.9); ALBUMIN/GLOBULIN RATIO 1.14; TOTAL PROTEIN 5.8 g/dl (6.1-8.1)
[2019-02-02 06:19] LABS: MAGNESIUM 2.2 mg/dl (1.7-2.5)
[2019-02-02 06:19] LABS: PHOSPHORUS 4.4 mg/dl (2.5-4.9)
[2019-02-02] MEDS: HEPARIN 5,000 UNIT/1 ML VIAL SC (08:25)
[2019-02-02] MEDS: FAMOTIDINE 20 MG TAB PO (08:25)
[2019-02-02] MEDS: DOCUSATE SODIUM 100 MG CAP PO (08:25)
[2019-02-02] MEDS: DEXTROSE 5%-0.45% NACL 1,000 ML IV (09:12)
[2019-02-02] MEDS: morphine 4 MG/ML VIAL IV (09:13)
[2019-02-02] MEDS: ONDANSETRON 4 MG INJ IV (09:13)
[2019-02-02 13:24] LABS: ADD UMIC NO; UR ASCORBIC ACID NEGATIVE (NEGATIVE); UR BILIRUBIN (Dip) NEGATIVE (NEGATIVE); UR BLOOD (Dip) NEGATIVE (NEGATIVE); UR CLARITY CLEAR (CLEAR); UR COLOR COLORLESS (YELLOW); UR GLUCOSE (Dip) NEGATIVE (NEGATIVE); UR KETONES (Dip) NEGATIVE (NEGATIVE); UR LEUKOCYTE ESTERASE (Dip) NEGATIVE Leu/ul (NEGATIVE); UR NITRITE (Dip) NEGATIVE (NEGATIVE); UR SPECIFIC GRAVITY (Dip) 1.003 (1.003-1.030); UR TOTAL PROTEIN (Dip) NEGATIVE (NEGATIVE); UR UROBILINOGEN (Dip) NEGATIVE (NEGATIVE)
== END 2019-02-02 17:10 | disposition home or self-care (01) | DRG 417 ==
LOC: E/R 08:22 → MS3 01-30 18:25 → 2NE 11:39
PROC: 0FT44ZZ Resection of Gallbladder, Percutaneous Endoscopic Approach (ICD-10-PCS; principal; 2019-01-31 10:31)
PROC: 0FB04ZX Excision of Liver, Percutaneous Endoscopic Approach, Diagnostic (ICD-10-PCS; 2019-01-31 10:31)
DX: K80.10 Calculus of gallbladder with chronic cholecystitis without obstruction (principal); E43 Unspecified severe protein-calorie malnutrition; Z68.1 Body mass index [BMI] 19.9 or less, adult; N17.9 Acute kidney failure, unspecified; E80.6 Other disorders of bilirubin metabolism; J45.909 Unspecified asthma, uncomplicated; K58.9 Irritable bowel syndrome, unspecified; K21.9 Gastro-esophageal reflux disease without esophagitis; F41.9 Anxiety disorder, unspecified; M79.7 Fibromyalgia; Z88.0 Allergy status to penicillin
CPT/HCPCS: 36415; 74181; 76705; 80053; 81001; 81003; 83690; 83735; 84100; 84484; 85025; 85610; 85730; 87086; 88304; 88307; 88313; 93005; 96361; 96374; 96375; 96376; 99285-25

== ENCOUNTER 2019-02-19 15:19 | Inpatient (IN) | payer MEDICAID, OTHER ==
[2019-02-19 19:55] LABS: URINE BLOOD (Dip) POC Negative (NEGATIVE); URINE GLUCOSE (Dip) POC Negative (NEGATIVE); URINE KETONES (Dip) POC Negative (NEGATIVE); URINE LEUKOCYTE EST (Dip) POC Negative (NEGATIVE); URINE NITRITE (Dip) POC Negative (NEGATIVE); URINE TOTAL PROTEIN POC Negative (NEGATIVE)
[2019-02-19 19:55] LABS: URINE PH (Dip) POC 8.5 (5.0-8.5)
[2019-02-19 20:30] LABS: ADD MAN DIFF? NO
[2019-02-19 20:35] LABS: BASOPHIL # 0.1 10^3/ul (0.0-0.1); BASOPHILS % 0.7 % (0.0-2.0); EOSINOPHILS # 0.1 10^3/ul (0.0-0.5); EOSINOPHILS % 1.7 % (0.0-7.0); HEMATOCRIT 41.6 % (37.0-47.0); LYMPHOCYTES # 3.1 10^3/ul (0.8-2.9); LYMPHOCYTES % 38.6 % (15.0-51.0); MEAN CORPUSCULAR HEMOGLOBIN 25.8 pg (29.0-33.0); MEAN CORPUSCULAR HGB CONC 31.3 g/dl (32.0-37.0); MEAN CORPUSCULAR VOLUME 82.5 fl (82.0-101.0); MEAN PLATELET VOLUME 11.4 fl (7.4-10.4); MONOCYTE # 0.4 10^3/ul (0.3-0.9); MONOCYTES % 5.5 % (0.0-11.0); NEUTROPHIL # 4.3 10^3/ul (1.6-7.5); NEUTROPHILS % 53.4 % (39.0-77.0); PLATELET COUNT 328 10^3/UL (140-415); RED BLOOD COUNT 5.04 10^6/ul (4.20-5.40); RED CELL DISTRIBUTION WIDTH 13.7 % (11.5-14.5)
[2019-02-19 20:40] LABS: ADD UMIC YES; UR AMORPHOUS CRYSTAL FEW /HPF (NONE SEEN); UR ASCORBIC ACID 20 mg/dL (NEGATIVE); UR BILIRUBIN (Dip) NEGATIVE (NEGATIVE); UR BLOOD (Dip) NEGATIVE (NEGATIVE); UR CLARITY CLOUDY (CLEAR); UR COLOR YELLOW (YELLOW); UR GLUCOSE (Dip) NEGATIVE (NEGATIVE); UR KETONES (Dip) NEGATIVE (NEGATIVE); UR LEUKOCYTE ESTERASE (Dip) NEGATIVE Leu/ul (NEGATIVE); UR NITRITE (Dip) NEGATIVE (NEGATIVE); UR RBC 1 /HPF (0-5); UR SPECIFIC GRAVITY (Dip) 1.011 (1.003-1.030); UR TOTAL PROTEIN (Dip) NEGATIVE (NEGATIVE); UR UROBILINOGEN (Dip) NEGATIVE (NEGATIVE); UR WBC 0 /HPF (0-5)
[2019-02-19 20:50] LABS: ALANINE AMINOTRANSFERASE 23 IU/L (13-69); ALBUMIN 4.3 g/dl (3.3-4.9); ALBUMIN/GLOBULIN RATIO 1.43; ALKALINE PHOSPHATASE 83 IU/L (42-121); ANION GAP 5 (5-13); ASPARTATE AMINO TRANSFERASE 24 IU/L (15-46); BILIRUBIN,INDIRECT 1.3 mg/dl (0-1.1); BILIRUBIN,TOTAL 1.3 mg/dl (0.2-1.3); BLOOD UREA NITROGEN 14 mg/dl (7-20); CALCIUM 10.1 mg/dl (8.4-10.2); CARBON DIOXIDE 29 mmol/L (21-31); CHLORIDE 104 mmol/L (97-110); Estimated GFR > 60 mL/min (>60); GLUCOSE 84 mg/dl (70-220); LIPASE 76 U/L (23-300); SODIUM 138 mmol/L (135-144); TOTAL PROTEIN 7.3 g/dl (6.1-8.1)
[2019-02-19] MEDS: ACETAMINOPHEN 325 MG TAB PO (20:52)
[2019-02-19] MEDS ORDERED: ACETAMINOPHEN 325 MG TAB PO (21:30)
[2019-02-19] MEDS ORDERED: NACL 0.9% 3 ML SYG IV (21:30)
[2019-02-19] MEDS ORDERED: ONDANSETRON 4 MG INJ IV (21:30)
[2019-02-19] MEDS: DEXTROSE 5%-0.45% NACL 1,000 ML IV (22:45)
[2019-02-20 05:12] LABS: ADD MAN DIFF? NO
[2019-02-20 05:14] LABS: WHITE BLOOD COUNT 6.4 10^3/ul (4.8-10.8)
[2019-02-20 05:15] LABS: BASOPHIL # 0.1 10^3/ul (0.0-0.1); BASOPHILS % 1.2 % (0.0-2.0); EOSINOPHILS # 0.2 10^3/ul (0.0-0.5); EOSINOPHILS % 3.1 % (0.0-7.0); HEMATOCRIT 38.3 % (37.0-47.0); HEMOGLOBIN 11.9 g/dl (12.0-16.0); LYMPHOCYTES # 2.8 10^3/ul (0.8-2.9); LYMPHOCYTES % 43.8 % (15.0-51.0); MEAN CORPUSCULAR HEMOGLOBIN 25.4 pg (29.0-33.0); MEAN CORPUSCULAR HGB CONC 31.1 g/dl (32.0-37.0); MEAN CORPUSCULAR VOLUME 81.8 fl (82.0-101.0); MEAN PLATELET VOLUME 11.6 fl (7.4-10.4); MONOCYTE # 0.5 10^3/ul (0.3-0.9); NEUTROPHIL # 2.9 10^3/ul (1.6-7.5); NEUTROPHILS % 44.6 % (39.0-77.0); PLATELET COUNT 297 10^3/UL (140-415); RED BLOOD COUNT 4.68 10^6/ul (4.20-5.40); RED CELL DISTRIBUTION WIDTH 13.9 % (11.5-14.5)
[2019-02-20 05:43] LABS: ALANINE AMINOTRANSFERASE 23 IU/L (13-69); ALBUMIN 3.1 g/dl (3.3-4.9); ALBUMIN/GLOBULIN RATIO 1.19; ALKALINE PHOSPHATASE 57 IU/L (42-121); ANION GAP 1 (5-13); ASPARTATE AMINO TRANSFERASE 21 IU/L (15-46); BILIRUBIN,INDIRECT 1.3 mg/dl (0-1.1); BILIRUBIN,TOTAL 1.3 mg/dl (0.2-1.3); BLOOD UREA NITROGEN 13 mg/dl (7-20); CALCIUM 9.3 mg/dl (8.4-10.2); CARBON DIOXIDE 30 mmol/L (21-31); CHLORIDE 107 mmol/L (97-110); CREATININE 0.94 mg/dl (0.44-1.00); Estimated GFR > 60 mL/min (>60); GLUCOSE 63 mg/dl (70-220); MAGNESIUM 2.6 mg/dl (1.7-2.5); PHOSPHORUS 4.3 mg/dl (2.5-4.9); SODIUM 138 mmol/L (135-144); TOTAL PROTEIN 5.7 g/dl (6.1-8.1)
[2019-02-20] MEDS: morphine 2 MG INJ IV (06:41)
[2019-02-20] MEDS: ONDANSETRON 4 MG INJ IV (06:43)
[2019-02-20] MEDS: DEXTROSE 5%-0.45% NACL 1,000 ML IV ×2 (09:57→13:48)
[2019-02-20 13:22] LABS: CARCINOEMBRYONIC ANTIGEN 3.4 ng/ml (0.0-5.0)
[2019-02-20 13:27] LABS: CANCER ANTIGEN 19-9 8.5 U/ml (0.0-37.0)
[2019-02-20] MEDS: FAMOTIDINE 20 MG INJ IV ×2 (13:47→22:00)
[2019-02-20] MEDS: AL HYDROX/MG HYDROX/SIMETH 30 ML CUP PO ×3 (13:47→22:16)
[2019-02-20 14:20] LABS: ALPHA FETOPROTEIN 2.19 IU/L (0.00-7.21)
[2019-02-20 14:41] LABS: HEPATITIS B SURFACE ANTIGEN NEGATIVE (NEGATIVE)
[2019-02-20 14:59] LABS: HEPATITIS B CORE ANTIBODY NEGATIVE (NEGATIVE); HEPATITIS C VIRAL ANTIBODY NEGATIVE (NEGATIVE); HIV 1&2 ANTIBODY NEGATIVE (NEGATIVE)
[2019-02-20 15:11] LABS: HEPATITIS B SURFACE ANTIBODY NEGATIVE (NEGATIVE)
[2019-02-20] MEDS: IOHEXOL 350MG/ML 50 ML BTL (16:56)
[2019-02-20] MEDS: IOHEXOL 100 ML (16:56)
[2019-02-20] MEDS: SOD CHLORIDE 0.9% 100 ML (16:56)
[2019-02-20] MEDS: METOCLOPRAMIDE 5 MG TAB PO (17:55)
[2019-02-20] MEDS: traZODone 50 MG TAB PO (21:00)
[2019-02-21] MEDS: DEXTROSE 5%-0.45% NACL 1,000 ML IV ×4 (01:53→22:45)
[2019-02-21] MEDS ORDERED: SUMATRIPTAN 25 MG TAB PO (03:30)
[2019-02-21 05:48] LABS: IRON 105 ug/dl (35-150)
[2019-02-21 05:58] LABS: % IRON SATURATION 34 % SAT (22-52); TOTAL IRON BINDING CAPACITY 309 ug/dl (241-421)
[2019-02-21] MEDS: AL HYDROX/MG HYDROX/SIMETH 30 ML CUP PO ×4 (06:30→23:32)
[2019-02-21] MEDS: ONDANSETRON 4 MG INJ IV ×2 (06:54→13:05)
[2019-02-21] MEDS: morphine 2 MG INJ IV ×3 (06:55→17:23)
[2019-02-21 07:22] LABS: FOLATE 7.1 ng/ml (2.8-20.0)
[2019-02-21] MEDS: METOCLOPRAMIDE 5 MG TAB PO ×3 (07:50→17:23)
[2019-02-21] MEDS: FAMOTIDINE 20 MG INJ IV (08:24)
[2019-02-21] MEDS: BARIUM SULFATE 135 ML (E-Z HD) PO (09:23)
[2019-02-21 10:32] LABS: ALPHA 1 ANTITRYPSIN 138 mg/dL (83-199)
[2019-02-21] MEDS: ALPRAZOLAM 0.25 MG TAB PO (13:46)
[2019-02-21] MEDS ORDERED: ALPRAZOLAM 0.25 MG TAB PO (14:00)
[2019-02-21] MEDS: LIDOCAINE/MYLANTA 40 ML BTL PO (18:13)
[2019-02-21] MEDS: OLANZAPINE (ODT) 5 MG TAB ODT (21:00)
[2019-02-21] MEDS: traZODone 50 MG TAB PO (21:00)
[2019-02-21] MEDS: DICYCLOMINE 10 MG CAP PO (21:06)
[2019-02-22] MEDS: morphine 2 MG INJ IV ×2 (03:08→12:28)
[2019-02-22] MEDS: LANSOPRAZOLE (SOLTAB) 30 MG TAB PO (05:34)
[2019-02-22] MEDS: AL HYDROX/MG HYDROX/SIMETH 30 ML CUP PO ×3 (05:35→17:21)
[2019-02-22] MEDS: METOCLOPRAMIDE 5 MG TAB PO ×3 (09:22→17:21)
[2019-02-22] MEDS ORDERED: BARIUM SULFATE 135 ML (E-Z HD) PO ×2 (10:24→10:25)
[2019-02-22] MEDS: ONDANSETRON 4 MG INJ IV (12:28)
[2019-02-22] MEDS: ALPRAZOLAM 0.25 MG TAB PO (17:59)
[2019-02-22] MEDS: DEXTROSE 5%-0.45% NACL 1,000 ML IV (19:15)
[2019-02-22] MEDS: OLANZAPINE (ODT) 5 MG TAB ODT (20:48)
[2019-02-22] MEDS: traZODone 50 MG TAB PO (20:49)
[2019-02-22] MEDS: SPECIAL NON-STANDARD MEDICATION PO (20:54)
[2019-02-22] MEDS ORDERED: PATIENT'S OWN MEDICATION PO (21:00)
[2019-02-23] MEDS: AL HYDROX/MG HYDROX/SIMETH 30 ML CUP PO ×2 (00:13→05:56)
[2019-02-23] MEDS: ONDANSETRON 4 MG INJ IV (06:47)
[2019-02-23] MEDS: METOCLOPRAMIDE 5 MG TAB PO ×2 (07:35→11:34)
== END 2019-02-23 12:10 | disposition home or self-care (01) | DRG 887 ==
LOC: MS3 02-21 21:38 → E/R 15:19 → MS1 21:04
DX: F50.89 Other specified eating disorder (principal); Z68.1 Body mass index [BMI] 19.9 or less, adult; F33.2 Major depressive disorder, recurrent severe without psychotic features; K90.9 Intestinal malabsorption, unspecified; R13.10 Dysphagia, unspecified; R62.7 Adult failure to thrive; F41.9 Anxiety disorder, unspecified; M79.7 Fibromyalgia; J45.909 Unspecified asthma, uncomplicated; K21.9 Gastro-esophageal reflux disease without esophagitis; K58.0 Irritable bowel syndrome with diarrhea; R07.9 Chest pain, unspecified; R51 Headache; K44.9 Diaphragmatic hernia without obstruction or gangrene; K29.70 Gastritis, unspecified, without bleeding; Z87.891 Personal history of nicotine dependence; Z90.49 Acquired absence of other specified parts of digestive tract
CPT/HCPCS: 36415; 71045; 74178; 74230; 80053; 81001; 81003; 82103; 82105; 82378; 82607; 82746; 83540; 83690; 83735; 84100; 85025; 86301; 86305; 86703; 86704; 86706; 86709; 86803; 87045; 87075; 87081; 87177; 87205; 87340; 92610; 92611; 93005; 99285-25